=== PATIENT | male | born 1980 | race Caucasian/White ===

== ENCOUNTER 2023-02-24 08:37 | Outpatient (REF) | payer OTHER, SELFPAY ==
[2023-02-24 11:55] LABS: Alanine Aminotransferase 17 U/L (0-40); Albumin Level 4.3 g/dL (3.5-5.0); Alkaline Phosphatase 89 U/L (39-117); Anion Gap 14 (12-20); Aspartate Amino Transferase 12 U/L (5-37); Bilirubin Direct 0.3 mg/dL (0.0-0.5); Bilirubin Total 0.5 mg/dL (0.0-1.0); Blood Urea Nitrogen 16 mg/dL (9-16); Carbon Dioxide 25 mmol/L (22-29); Chloride 104 mmol/L (96-108); Cholesterol 142 mg/dL (<200); Estimated Glomerular Filt Rate > 60; Glucose Random 184 mg/dL (60-115); HDL Cholesterol 39 mg/dL (>40); LDL Cholesterol Calculated 69 mg/dL (<100); Potassium 4.6 mmol/L (3.3-5.1); Sodium 138 mmol/L (135-145); Total Protein 7.7 g/dL (6.5-8.0); Triglycerides 174 mg/dL (<150)
[2023-02-24 12:27] LABS: Reflex LDLD? No
[2023-02-27 18:47] LABS: CRP High Sensitivity 0.7 mg/L
== END 2023-02-24 08:38 | disposition home or self-care (01) ==
LOC: HO.HHCL 08:37
PROVIDERS: Visit Provider Internal Medicine
DX: I10 Essential (primary) hypertension (principal); E11.9 Type 2 diabetes mellitus without complications
CPT/HCPCS: 36415; 80048; 80061; 80076; 86141

== ENCOUNTER 2023-04-09 10:53 | Outpatient (AMB) | payer MEDICAID, SELFPAY ==
--- NOTE | 2023-04-09 11:05 | A.OFFVIS_ITS ---
Intake Intake Visit Reasons: Erictile Dysfuction Intake Note: NEW Patient presents today to established treatment for Erectile Dysfunction: Meds- None Allergies to Antibiotic- No Known Allergies Blood Thinner- Aspirin Insole And Outsole Preparer Required: Yes Insole And Outsole Preparer Language: Boring Machine Operator Double End Name: DIONI Vo/TIM Corea Information Interpreted: non-clinical & clinical Title Vehicle Service Attendant: Title Vehicle Service Attendant Present Accompanied by: Self / Same As Patient Allergies No Known Allergies Allergy (Verified 04/09/23 21:08) Medication List - Last Reconciled 04/09/23 by GENNA Oates- amlodipine 5 mg PO BEDTIME aspirin 81 mg PO QAM blood sugar diagnostic (FreeStyle Lite Strips) As directed carvedilol 25 mg PO dulaglutide (Trulicity) mg subcut QWEEK glipizide ER 10 mg PO isosorbide mononitrate ER 30 mg PO DAILY lancets (TRUEplus Lancets) As directed metformin ER 1,000 mg PO nitroglycerin mg sublingual rosuvastatin 40 mg PO BEDTIME tadalafil (Cialis) 5 mg PO DAILY 90 days ticagrelor (Brilinta) 90 mg PO BID HPI HPI Comments History of Present Illness Details Salazar is a very pleasant 42-year-old male patient of Dr. Garcia. He has a past medical history of hyperlipidemia, coronary artery disease, hypertension, and diabetes. He presents to the office today as a new patient for erectile dysfunction. In discussion with the patient today he reports noting symptoms of erectile dysfunction started approximately 3-5 years ago. When asked he does report being able to obtain erections however finds maintaining and at times obtaining erections to be difficult. Discussed at length potential causes for erectile dysfunction. Discussed and stressed the importance of managing diabetes for improvement in ED. When asked he denies any signs or symptoms of sleep apnea. When asked he denies any bothersome urinary issues. He denies urinary urgency, urinary frequency, incontinence, nocturia, hematuria, dysuria, foul smelling urine, changes to urinary stream, flank pain, fever, and or chills. He is happy with his current voiding parameters. In office urinalysis results reviewed with the patient today. Discussed further erectile dysfunction workup with labs. [facility] Medical History (Updated 04/09/23 @ 12:01 by [facility] Hx of chest pain Hx of hyperlipidemia Hx of coronary artery disease Hx of essential hypertension Hx of diabetes mellitus Surgical History (Updated 04/09/23 @ 11:16 by DIONI Vo) History of coronary artery stent placement Family History (Updated 04/09/23 @ 11:20 by DIONI Vo) Father No problems noted. Mother No problems noted. Social History (Updated 04/09/23 @ 11:26 by DIONI Vo) Alcohol intake: current Alcohol intake frequency: holidays/special occasions only Patient Tobacco Use Status: Former Tobacco user Review of Systems Const Reports no additional complaints Eyes Reports no additional complaints ENT Reports no additional complaints Card Reports as per HPI Resp Reports no additional complaints GI Reports no additional complaints Reports as per HPI Musc Reports no additional complaints Neuro Reports no additional complaints Psych Reports no additional complaints Endo Reports as per HPI Yosef/Lymph Reports no additional complaints Aller/Immun Reports no additional complaints Physical Exam Const General: cooperative, healthy appearing, comfortable, no acute distress, well developed, alert and awake Orientation/consciousness: patient oriented x3 Limitations: no limitations HEENT Head: Yes normal to inspection, Yes normocephalic and Yes atraumatic Ears: hearing grossly normal bilaterally Eyes General: appearance normal, both eyes and all related structures Neck Neck: Yes normal visual inspection and Yes trachea midline Chest Chest palpation & inspection: normal inspection of the chest Resp Effort & Inspection: normal respiratory effort and able to speak in complete sentences Cardio Rate: regular rate GI Inspection: Yes normal to inspection General: Yes no CVA tenderness Back/Spine/Pelvis Back: no CVA tenderness Skin General skin exam: no rashes or lesions noted Neuro General: patient oriented x3 Extrem General: Yes normal to inspection Psych Appearance: grossly normal and well kempt Mental Status: mental status grossly normal Speech and movement: Normal speech and movement present and Clear speech present Affect: normal affect Attitude: cooperative Thought process: Normal thought process present Thought content: Normal thought content present Insight: Fair insight present (Psych) Judgement: Fair judgement present (Psych) Results AMB Urinalysis, Automated UA Leukoctes 0 Alvaro/uL Last Edit by DIONI Vo on 04/09/23 11:23 UA Nitrite Negative Last Edit by Yeison Loza Yeimi on 04/09/23 11:23 UA Urobilinogen 0.2 mg/dL Last Edit by Yeison Loza Yeimi on 04/09/23 11:2 3 UA Protein 15 mg/dL Last Edit by Yeison Loza Yeimi on 04/09/23 11:23 UA pH 5.5 Last Edit by Yeison Loza Yeimi on 04/09/23 11:23 UA Blood 0 Sami/uL Last Edit by Yeison Loza [facility] on 04/09/23 11:23 UA Specific Mckenna 1.030 Last Edit by DIONI Vo on 04/09/23 11: 23 UA Ketone Negative Last Edit by Yeison Loza Yeimi on 04/09/23 11:23 UA Bilirubin 0 mg/dL Last Edit by Yeison Loza [facility] on 04/09/23 11:23 UA Glucose 1000 mg/dL Last Edit by Yeison Loza Yeimi on 04/09/23 11:23 3+ Yeison Loza 04/09/23 11:23 Results Reviewed Results Reviewed: Laboratory Last Values Urine pH (Auto) 5.5 04/09/23 11:21 Specific Mckenna (Auto) 1.030 04/09/23 11:21 Urine Protein (Auto) 15 mg/dL 04/09/23 11:21 Glucose (UA)(Auto) 1000 mg/dL 04/09/23 11:21 Urine Ketones (Auto) Negative 04/09/23 11:21 Urine Blood (Auto) 0 Sami/uL 04/09/23 11:21 Urine Nitrite (Auto) Negative 04/09/23 11:21 Urine Bilirubin (Auto) 0 mg/dL 04/09/23 11:21 Urine Urobilinogen (Auto) 0.2 mg/dL 04/09/23 11:21 Leukocyte Esterase (Auto) 0 Alvaro/uL 04/09/23 11:21 Assessment & Plan Assessment & Plan (1) Low libido: Code(s): R68.82 - Decreased libido (2) Erectile dysfunction associated with type 2 diabetes mellitus: Code(s): E11.69 - Type 2 diabetes mellitus with other specified complication; N52.1 - Erectile dysfunction due to diseases classified elsewhere Plan In office urinalysis results reviewed with the patient today; as noted above. Will obtain LH, prolactin, FSH, estradiol, hemoglobin A1c, SHBG, and testosterone free and total for further assessment evaluation. Discussed at length potential causes for erectile dysfunction patient is experiencing. Discussed at length importance of managing diabetes for improvement in ED as well as overall health and well-being. Start Cialis 5 mg daily as discussed and prescribed. Discussed further treatment options for erectile dysfunction at length. Discussed calling hand i tube bender to discuss on demand dosing for Viagra or Cialis. Discussed lifestyle modifications to assist with erectile dysfunction. Follow up in 2-3 months with labs to be completed prior; or sooner with any issues, concerns, or issues. Orders: Orders AMB Urinalysis Automated 04/09/23 Z13.9 - Encounter for screening, unspecified Kaden Alegre MD Lutenizing Hormone 04/09/23 E11.69 - Type 2 diabetes mellitus with other specified complication, N52.1 - Erectile dysfunction due to diseases classified elsewhere SHAHIDA OatesP-BC Prolactin 04/09/23 E1169 - Type 2 diabetes mellitus with other specified complication, N52.1 - Erectile dysfunction due to diseases classified elsewhere Adriana Paniagua, RN [facility] Follicle Stimulating Hormone 04/09/23 E11.69 - Type 2 diabetes mellitus with other specified complication, N52.1 - Erectile dysfunction due to diseases classified elsewhere Adriana Paniagua, RN [facility] Estradiol Ultra Sensitive 04/09/23 E11.69 - Type 2 diabetes mellitus with other specified complication, N52.1 - Erectile dysfunction due to diseases classified elsewhere Adriana Paniagua, RN [facility] Hemoglobin A1c 04/09/23 E11.69 - Type 2 diabetes mellitus with other specified complication, N52.1 - Erectile dysfunction due to diseases classified elsewhere Adriana Paniagua, RN [facility] Sex Hormone Binding Globulin 04/09/23 E11.69 - Type 2 diabetes mellitus with other specified complication, N52.1 - Erectile dysfunction due to diseases classified elsewhere Adriana Paniagua, RN [facility] Testosterone, Free/Total 04/09/23 E11.69 - Type 2 diabetes mellitus with other specified complication, N52.1 - Erectile dysfunction due to diseases classified elsewhere CARROL Oates Medications: New tadalafil (Cialis) [id number] [facility] [id number] Member [id number] 5 mg PO DAILY 90 tabs 0RF 90 days E11.69 - Type 2 diabetes mellitus with other specified complication, N52.1 - Erectile dysfunction due to diseases classified elsewhere CARROL Oates Coding Level of Care Code New Pt Level 4 (34117) Diagnoses Low libido R68.82 Erectile dysfunction associated with type 2 diabetes mellitus E11.69; N52.1
== END 2023-04-09 12:04 | disposition home or self-care (01) ==
PROVIDERS: PCP Internal Medicine; Visit Provider Urology
DX: R68.82 Decreased libido (principal); E11.69 Type 2 diabetes mellitus with other specified complication; N52.1 Erectile dysfunction due to diseases classified elsewhere
CPT/HCPCS: 99204

== ENCOUNTER → 2023-04-09 10:53 | Outpatient (BNVA) | payer OTHER, SELFPAY | PROVIDERS: PCP Internal Medicine; Visit Provider Urology | DX: R68.82 Decreased libido (principal); E11.69 Type 2 diabetes mellitus with other specified complication; N52.1 Erectile dysfunction due to diseases classified elsewhere | CPT/HCPCS: 81003; 99202 ==

== ENCOUNTER 2023-06-05 13:45 | Outpatient (REF) | payer MEDICAID, SELFPAY ==
--- NOTE | ~2023-06-05 | XR_ITS ---
EXAMINATION: XR FOOT, LEFT CLINICAL INFORMATION: Plantar ulcer in the foot COMPARISON: None available. TECHNIQUE: AP, lateral, and oblique views of the left foot. FINDINGS: No convincing evidence for a bony erosion. No fracture or dislocation. Some early degeneration at the first MTP joint. No soft tissue air is seen. XR/XR foot LT min 3V IMPRESSION: No bony finding. Correlation recommended clinically
== END 2023-06-05 13:46 | disposition home or self-care (01) ==
LOC: HO.HHCX 13:45
PROVIDERS: Visit Provider Internal Medicine
DX: L97.521 Non-pressure chronic ulcer of other part of left foot limited to breakdown of skin (principal)
CPT/HCPCS: 73630

== ENCOUNTER 2024-04-06 10:01 | Outpatient (REF) | payer MEDICAID, SELFPAY ==
--- NOTE | ~2024-04-06 | XR_ITS ---
EXAMINATION: XR CHEST CLINICAL INFORMATION: cough COMPARISON: None available. TECHNIQUE: 2 views of the chest were obtained. FINDINGS: The cardiac, hilar, and mediastinal contours are normal. There is a left coronary stent. Prior median sternotomy. The lungs are clear bilaterally. There is no pneumothorax or pleural effusion. There is no focal osseous or soft tissue abnormality. Median sternotomy with sternal wires intact and non-migrated. XR/XR chest 2V IMPRESSION: No active pulmonary disease. Electronically signed by: Prem Varela MD 04/06/2024 11:02 AM EST
--- OUTSIDE RECORDS SUMMARY | 2024-04-06 10:57 | XMS_ITS | Clinical Summary ---
Author Organization [facility] Address [address] [place] [address] Care Team Providers Care Cream Maker Name Role Phone Unavailable Primary Care Provider Unavailabl e Source Comments PLEASE NOTE, if this patient is a minor, it may be UNLAWFUL to discuss sensitive information that is contained in these records (such as FAMILY PLANNING, MENTAL HEALTH or SUBSTANCE ABUSE) with the minor patient's parent or other person without the patient's specific authorization.[facility] Immunizations Name Administration Dates Next Due PFIZER COVID VACCINE, PURPLE CAP, 1208/09/2020 ,07/19/2020 Social History Tobacco Use Types Packs/Day Years Used Date Smoking Tobacco: Never Assessed Social Connections Answer Date Recorded Social Connections and Isolation 0 06/25/2020 Financial Resource Strain Answer Date R ecorded Financial Resource Strain 0 2020 Stress Answer Date Recorded Stress 0 06/25/2020 Physical Activity Answer Date Recorded Physical Activity 0 06/25/2020 Food Insecurity Answer Date Recorded Food 0 06/25/2020 Transportation Needs Answer Date Record ed Transportation 0 06/25/2020 Housing Stability Answer Date Recorded Housing 0 06/25/2020 Safety and Environment Answer Date Tristan rded Safety 0 06/25/2020 Utilities Answer Date Recorded Utilities 0 06/25/2020 Employment Answer Date Recorded Employment 0 06/25/2020 Sex and Gender Information Value Date Recorded Sex Assigned at Not on file Legal Sex Male 1:33 PM PDT Gender Identity Not on file Sexual Orientation Not on file Plan of Treatment Health Maintenance Due Date Last Done Comments Diabetes Screening 1979 Hepatitis C Screening 1979 Lipid Screening 1979 Tobacco Screening 1979 HIV Screening 05/25/1994 Hypertension Screening (#1) 05/25/1997 Imm-Hepatitis B (1 of 3 - 19 + 3-dose series) 05/25/1998 [id number] ( season) 2023 021, 07/19/2020 Imm-Influenza (#1) 2023 02/23/2019 Alcohol and Drug Screen 03/16/2024 Depression Annual Screen 03/16/2024 Imm-DTaP/Tdap/Td (2 - Td or Tdap) 10/10/[address]28 [address] [employer]
--- OUTSIDE RECORDS SUMMARY | 2024-04-06 10:57 | XMS_ITS | Encounter Summary ---
Author Organization [employer] Address [address] [place] [address] [place] [address] Care Team Providers Care Site Safety Representative Name Role Phone Prasad Menezes MD Primary Care Provide r Reason for Referral * Consultation (Urgent) - Authorized Specialty Diagnoses / Procedures Referred By Contac t Referred To Contact Ophthalmology Diagnoses Type 2 diabetes mellitus without complication, without long-term current use of insulin ([facility]) Prasad Menezes MD [address] [place] [phone] Phone: tel: fax: [facility] [place] [address] [place] [address] Phone: tel:[phone] fax: Referral ID Status Reason Start Date Expiration Date Visits Requested Visits Authorized [id number] Authorized Specialty Services Required 03/17/2024 03/17/2025 1 1 Reason for Visit * Reason Comments Annual Exam Diabetes Encounter Details Date Type Department Care Team (Late st Contact Info) Description 03/17/2024 10:30 AM EST Office Visit [facility] [address] [place] [address] [phone] Prasad Menezes MD [address] [place] [phone] S/P CABG (coronary artery bypass graft) (Primary Dx); Type 2 diabetes mellitus without complication, without long-term current use of insulin (CMS/HCC); Ischemic heart disease; Acute cough; Essential hypertension; Mixed hyperlipidemia; Erectile dysfunction, unspecified erectile dysfunction type; Class 2 obesity; Dietary counseling; Exercise counseling Social History Tobacco Use Types Packs/Day Years Used Date Smoking Tobacco: Former Cigarettes 0.3 32.1 S tarted: 1992 Passive Smoke Exposure: Past Smokeless Tobacco: Never Comments:Smoking about 7 cig s daily; has tried to quit previously about 3 times. Alcohol Use Standard Drinks/Week Comments Yes 0 (1 standard drink = 0.6 oz pur e alcohol) socially Depression Answer Date Recorded Patient Health Questionnaire-9 Score 0 03/17/2024 Patient Health Questionnaire-9 Score 0 03/17/2024 Last PHQ-9: Questionnaire Data Not on file 0 03/17/2024 Housing Stability Answer Date Recorded What is your housing situation today? I have estela simon 01/22/[address] you li ve. Do you have problems with any of the following? None of the above 01/22/2023 Food Insecurity Answer Date Recorded Within the past 12 months, y ou worried that your food would run out before you got money to buy more: Never True 01/22/2023 Within the past 12 months,th e food you bought just didn't last and you didn't have enough money to get more: Never True 11/2022 Transportation Answer Date Recorded In the past 12 months, has l ack of transportation kept you from medical appts, meetings, work or from getting things needed for daily living? No 01/22/2023 Utilities Answer Date Recorded In the past 12 months, has t he [employer], gas, oil or water [employer] threatened to shut off services in your home? No 01/22/2023 Depression Answer Date Recorded Patient Health Questionnaire-2 Score 0 03/17/2024 Internet Access Answer Date Recorded Internet Access Q1 Yes 01/18/2024 Internet Access Q2 Not on file 01/18/2024 Sex and Gender Information Value Date Recorded Sex Assigned at Male 01/13/2022 10:35 AM EDT Legal Sex Male 10:35 AM EDT Gender Identity Male 01/13/2022 10:35 AM EDT Sexual Orientation Choose not to disclose 2021 10:35 AM EDT documented as of this encounter Last Filed Vital Signs Vital Sign Reading Time Taken Comments Blood Pressure 118/92 03/17/2024 10:23 AM EST Pulse 105 03/17/2024 10:23 AM EST Temperature 36.8 ??C (98.2 ??F) 03/17/2024 10:[address] Respiratory Rate 20 03/17/2024 10:23 AM EST Oxygen Saturation 99% 03/17/2024 10:23 AM EST Inhaled Oxygen Concentration - - Weight 93.9 kg (207 lb) 03/17/2024 10:23 AM EST Height 167.6 cm (5' 6 ) 03/17/2024 10:23 AM EST Body Mass Index 33.41 03/17/2024 10:23 AM EST documented in this encounter Progress Notes * Prasad Thompson MD - 03/17/2024 10:30 AM EST SUBJECTIVE Salazar Swan is a 43 y.o. male who presents for Annual Exam and Diabetes. Patient here for a follow up after a long hiatus Diabetes He presents for his follow-up diabetic visit. He has type 2 diabetes mellitus. Pertinent negatives for hypoglycemia include no dizziness or headaches. Pertinent negatives for diabetes include no chest pain and no fatigue. Cough This is a new problem. The current episode started 1 to 4 weeks ago. The problem has been waxing and waning. The cough is Non-productive. Pertinent negatives include no chest pain, chills, ear congestion, ear pain, fever, headaches, hemoptysis, nasal congestion, rash, sore throat, shortness of breath or wheezing. Nothing aggravates the symptoms. He has tried nothing for the symptoms. Review of Systems Constitutional: Negative for appetite change, chills, fatigue and fever. HENT: Negative for ear pain, hearing loss and sore throat. Eyes: Negative for pain and visual disturbance. Respiratory: Positive for cough. Negative for hemoptysis, shortness of breath and wheezing. Cardiovascular: Negative for chest pain and palpitations. Gastrointestinal: Negative for abdominal pain, nausea and vomiting. Genitourinary: Negative for dysuria. Skin: Negative for rash. Neurological: Negative for dizziness and headaches. Psychiatric/Behavioral: Negative for sleep disturbance. Not on File OBJECTIVE Vitals: 03/17/24 1023 BP: (!) 118/92 BP Location: Left arm Patient Position: Sitting BP Cuff Size: Adult Pulse: 105 Resp: 20 Temp: 98.2 ??F (36.8 ??C) TempSrc: Temporal SpO2: 99% Weight: 207 lb (93.9 kg) Height: 5' 6 (1.676 m) Physical Exam Vitals reviewed. Constitutional: General: He is not in acute distress. Appearance: Normal appearance. HENT: Head: Normocephalic and atraumatic. Right Ear: Tympanic membrane, ear canal and external ear normal. Left Ear: Tympanic membrane, ear canal and external ear normal. Nose: Nose normal. Mouth/Throat: Mouth: Mucous membranes are moist. Pharynx: Oropharynx is clear. Eyes: Extraocular Movements: Extraocular movements intact. Conjunctiva/sclera: Conjunctivae normal. Pupils: Pupils are equal, round, and reactive to light. Cardiovascular: Rate and Rhythm: Normal rate and regular rhythm. Pulses: Normal pulses. Heart sounds: Normal heart sounds. Pulmonary: Effort: Pulmonary effort is normal. Breath sounds: Normal breath sounds. Abdominal: General: Bowel sounds are normal. Palpations: Abdomen is soft. Musculoskeletal: General: Normal range of motion. Cervical back: Normal range of motion and neck supple. Skin: General: Skin is warm. Capillary Refill: Capillary refill takes less than 2 seconds. Neurological: General: No focal deficit present. Mental Status: He is alert and oriented to person, place, and time. Mental status is at baseline. Psychiatric: Mood and Affect: Mood normal. Assessment/Plan Problem List Items Addressed This Visit Type 2 diabetes mellitus without complication, without long-term current use of insulin ([facility]) Here for a f/u Patient admits he does not follow a diabetic diet. He says he is taking his medications regularly he has a med box Hgb A1c 03/17/2024 was 7.4 from 8.7 From 12.1 He is on a regimen of Metformin XR 500 mg 2 tabs po BID, Glipizide XR 10 mg po daily and Trulicity 0.75 once a week ( Pt never increased the dose to 1.5 mg due to shortage, also did not increase to 3) Referred to our DM and Nutrition Program and Eye exam previously Microalbumin was 8.9 , Pt is on an LULU inhibitor . Will repeat Pt denies any Hx of Pancreatitis denies any Family hx of thyroid papillary carcinoma Plan:continue Metformin and Glipizide, keep Trulicity 0.75 mg once a week. 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 He underwent cardiac catheterization that revealed iFR positive 70% LAD lesion, 70% OM2,99% RCA in stent stenosis, 60% PDA. On 01/18/2024 underwent CABGx4 (VELAZQUEZ to LAD, SVG to PDA, seqSVG to PLV-OM2) surgeon attempted endoscopic harvesting of the left radial artery (aborted due to allens failure after cutdown) by Dr. Jordan Started Cardiac rehab. He is seeing Cardiology 03/28, Cardiac surgeon recommended ASA, BB and statin for CAD and graft patency. DAPT with Plavix and ASA for 1 year for NSTEMI. 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 He underwent cardiac catheterization that revealed iFR positive 70% LAD lesion, 70% OM2,99% RCA in stent stenosis, 60% PDA. On 01/18/2024 underwent CABGx4 (VELAZQUEZ to LAD, SVG to PDA, seqSVG to PLV-OM2) surgeon attempted endoscopic harvesting of the left radial artery (aborted due to allens failure after cutdown) by Dr. Jordan Started Cardiac rehab. He is seeing Cardiology 03/28, Cardiac surgeon recommended ASA, BB and statin for CAD and graft patency. DAPT with Plavix and ASA for 1 year for NSTEMI. Pt is scheduled to follow up with [facility] Cardiology Acute cough Mild dry, no fever, no sob, no chest pain Plan: Chest x-ray Relevant Orders XR Chest 2 Views Essential hypertension Pt here for a f/u for HTN. BP controlled On Carvedilol 25 mg bid and Amlodipine 10 mg po daily, No longer on Losartan 50 mg po daily ( started by Dr Ortega discontinued by Cardiology ) OFF Lisinopril ( stopped due to concerns of cough) question of secondary HTN ? Pt evaluated by Dr. Howard Nephrology 06/24/2019 who recommended to hold off on work up for 2 year caused of HTN will consider Sleep Study if indicated. BMP Lab Results Component Value Date NA 138 02/24/2023 K 4.6 02/24/2023 CL 104 02/24/2023 BUN 16 02/24/2023 BUN 9 12/12/2021 CREATININE 1.02 02/24/2023 Normal, never had the repeat labs I ordered, asked again today He tells me he just took his meds a few minutes ago Plan: f/u in 1 month Pt encouraged to continue to follow with Dr. Howard Relevant Orders Comprehensive Metabolic Panel Mixed hyperlipidemia Pt here for a f/u Most recent lipid profile from: Lab Results Component Value Date TRIG 174 (H) 02/24/2023 CHOL 142 02/24/2023 LDLCHOLCAL 69 02/24/2023 HDL 39 (L) 02/24/2023 Currently on a regimen of Rosuvastatin 40 mg po qhs He admits he forgets to take it sometimes, Pharmacy states he has been picking up boxes regularly plan: LDL <70 on target advised to try to adhere to a low cholesterol diet, counseled and educated about diet and exercise,Patient encouraged to come up with a personal goal for weight loss. Advice to start taking medication daily to prevent deadly problems such as MIs or CVAs pt verbalized understanding f/u 3 months Relevant Orders Lipid Panel, Standard Class 2 obesity Patient has been counseled and educated about diet and exercise. Personal goal of weight loss discussedPatient has comorbidity of: DM Other Visit Diagnoses Erectile dysfunction, unspecified erectile dysfunction type Relevant Orders Testosterone, Free (Dialysis) And Total, MS Dietary counseling Exercise counseling documented in this encounter Miscellaneous Notes * Assessment & Plan Note - Prasad Thompson MD - 03/17/2024 11:20 AM EST Associated Problem(s): Class 2 obesity Patient has been counseled and educated about diet and exercise. Personal goal of weight loss discussedPatient has comorbidity of: DM * Assessment & Plan Note - Prasad Thompson MD - 03/17/2024 11:11 AM EST Associated Problem(s): Mixed hyperlipidemia Pt here for a f/u Most recent lipid profile from: Lab Results Component Value Date TRIG 174 (H) 02/24/2023 CHOL 142 02/24/2023 LDLCHOLCAL 69 02/24/2023 HDL 39 (L) 02/24/2023 Currently on a regimen of Rosuvastatin 40 mg po qhs He admits he forgets to take it sometimes, Pharmacy states he has been picking up boxes regularly plan: LDL <70 on target advised to try to adhere to a low cholesterol diet, counseled and educated about diet and exercise,Patient encouraged to come up with a personal goal for weight loss. Advice to start taking medication daily to prevent deadly problems such as MIs or CVAs pt verbalized understanding f/u 3 months * Assessment & Plan Note - Prasad Thompson MD - 03/17/2024 11:09 AM EST Associated Problem(s): Essential hypertension Pt here for a f/u for HTN. BP controlled On Carvedilol 25 mg bid and Amlodipine 10 mg po daily, No longer on Losartan 50 mg po daily ( started by Dr Ortega discontinued by Cardiology ) OFF Lisinopril ( stopped due to concerns of cough) question of secondary HTN ? Pt evaluated by Dr. Howard Nephrology 06/24/2019 who recommended to hold off on work up for 2 year caused of HTN will consider Sleep Study if indicated. BMP Lab Results Component Value Date NA 138 02/24/2023 K 4.6 02/24/2023 CL 104 02/24/2023 BUN 16 02/24/2023 BUN 9 12/12/2021 CREATININE 1.02 02/24/2023 Normal, never had the repeat labs I ordered, asked again today He tells me he just took his meds a few minutes ago Plan: f/u in 1 month Pt encouraged to continue to follow with Dr. Howard * Assessment & Plan Note - Prasad Thompson MD - 03/17/2024 11:06 AM EST Associated Problem(s): Acute cough Mild dry, no fever, no sob, no chest pain Plan: Chest x-ray * Assessment & Plan Note - Prasad Thompson MD - 03/17/2024 10:38 AM EST Associated Problem(s): Type 2 diabetes mellitus without complication, without long-term current useof insulin ([facility]) Here for a f/u Patient admits he does not follow a diabetic diet. He says he is taking his medications regularly he has a med box Hgb A1c 03/17/2024 was 7.4 from 8.7 From 12.1 He is on a regimen of Metformin XR 500 mg 2 tabs po BID, Glipizide XR 10 mg po daily and Trulicity 0.75 once a week ( Pt never increased the dose to 1.5 mg due to shortage, also did not increase to 3) Referred to our DM and Nutrition Program and Eye exam previously Microalbumin was 8.9 , Pt is on an LULU inhibitor . Will repeat Pt denies any Hx of Pancreatitis denies any Family hx of thyroid papillary carcinoma Plan:continue Metformin and Glipizide, keep Trulicity 0.75 mg once a week. 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 He underwent cardiac catheterization that revealed iFR positive 70% LAD lesion, 70% OM2,99% RCA in stent stenosis, 60% PDA. On 01/18/2024 underwent CABGx4 (VELAZQUEZ to LAD, SVG to PDA, seqSVG to PLV-OM2) surgeon attempted endoscopic harvesting of the left radial artery (aborted due to allens failure after cutdown) by Dr. Jordan Started Cardiac rehab. He is seeing Cardiology 03/28, Cardiac surgeon recommended ASA, BB and statin for CAD and graft patency. DAPT with Plavix and ASA for 1 year for NSTEMI. 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 He underwent cardiac catheterization that revealed iFR positive 70% LAD lesion, 70% OM2,99% RCA in stent stenosis, 60% PDA. On 01/18/2024 underwent CABGx4 (VELAZQUEZ to LAD, SVG to PDA, seqSVG to PLV-OM2) surgeon attempted endoscopic harvesting of the left radial artery (aborted due to allens failure after cutdown) by Dr. Jordan Started Cardiac rehab. He is seeing Cardiology 03/28, Cardiac surgeon recommended ASA, BB and statin for CAD and graft patency. DAPT with Plavix and ASA for 1 year for NSTEMI. documented in this encounter Plan of Treatment Upcoming Encounters Date Type Department Care Team (Late st Contact Info) Description 05/03/2024 2:15 PM EST Office Visit [facility] [address], [place] [phone] Prasad Menezes MD [address] [place] [address] 03/20/2025 2:30 PM EST Medication Management [facility] [address] [place], [place] [phone] Renetta Su, PharmD [address] [place] [address] Scheduled Orders Name Type Priority Associated Diagnoses Orde r Schedule Albumin, Random Urine W/Creatinine Lab Routine Type 2 diabetes mellitus without complication, without long-term current use of insulin ([facility]) Ordered: 03/17/2024 XR Chest 2 Views Imaging Routine Acute cough Ordered: 03/17/2024 Lipid Panel, Standard Lab Routine Mixed hyperlipidemia Ordered: 03/17/2024 Testosterone, Free (Dialysis) And Total, MS Lab Routine Erectile dysfunction, unspecified erectile dysfunction type Expected: 03/17/2024 (Approximate), Expires: 03/17/2025 Comprehensive Metabolic Panel Lab Routine Essential hypertension Ordered: 03/17/2024 Scheduled Referrals Name Type Priority Associated Diagnoses Order Schedule Referral to Ophthalmology Outpatient Referral Urgent Type 2 diabetes mellitus without complication, without long-term current use of insulin (CMS/HCC) Expected: 03/17/2024 (Approximate), Expires: 03/17/2025 documented as of this encounter Goals Goal Patient Goal Type Associated Problems Recent Progress Patient-Stated? Author Blood Pressure < 140/90 Blood Pressure 118/92(2024 10:23 AM EST) No Mary Kate Paul PharmD Note: Check BP at home daily and record Eat less salt Diet No Mary Kate Paul PharmD Note: Decrease sodium/ salt consumption documented as of this encounter Procedures Procedure Name Priority Date/Time Associated Diagnosis Comments POCT GLYCATED HEMOGLOBIN, TOTAL Routine 03/17/2024 10:36 AM EST Type 2 diabetes mellitus without complication, without long-term current use of insulin ([facility]) POCT GLUCOSE Routine 03/17/2024 10:34 AM EST Type 2 diabetes mellitus without complication, without long-term current use of insulin ([facility]) documented in this encounter Results * (ABNORMAL) POCT HGB A1C (03/17/2024 10:36 AM EST) Hemoglobin A1C 7.4(A) 4.0 - 6.0 % QC Media Lot # [id number] Lot# Expiration Date Blood 03/17/2024 10:3 6 AM EST Prasad Thompson MD POINT OF CARE TEST EN TER/EDIT ORDERABLES Final Result * (ABNORMAL) POCT Glucose (03/17/2024 10:34 AM EST) Glucose Blood, POC 411(A) 60 - 200 mg/dL QC Media Lot # [id number] Lot# Expiration Date , Blood Capillary blood specimen / Unknown 03/17/2024 10:34 AM EST us Prasad Thompson MD POINT OF CARE TEST EN TER/EDIT ORDERABLES Final Result documented in this encounter Visit Diagnoses Diagnosis S/P CABG (coronary artery bypass graft)- Primary Postsurgical aortocoronary bypass status Type 2 diabetes mellitus without complication, without long-term current use of insulin ([facility]) Ischemic heart disease Other specified forms of chronic ischemic heart disease Acute cough Essential hypertension Unspecified essential hypertension Mixed hyperlipidemia Erectile dysfunction, unspecified erectile dysfunction type Class 2 obesity Dietary counseling Dietary surveillance and counseling Exercise counseling documented in this encounter Additional Health Concerns Assessment Noted Time PHQ-9 Depression Total Score: 0 03/17/19 25 10:27 AM EST documented as of this encounter Care Teams Site Safety Representative Relationship Specialty Start Date End Date Prasad Menezes MD [address] [place] [address] PCP - General Internal Medicine 10/12/18 documented as of this encounter
--- OUTSIDE RECORDS SUMMARY | 2024-04-06 10:57 | XMS_ITS | Clinical Summary ---
Author Organization [employer] Address [address] [place] [address] [address] [place] [address] Care Team Providers Care Utilization Management Um Nurse Name Role Phone Prasad Menezes MD Primary Care Provide r Allergies Active Allergy Reactions Criticality Noted Date Comments Other 03/17/2024 Anchovies Medications Blood Pressure Monitoring (Omron 3 Series BP Monitor) deviceIndications :Essential hypertension USE TO CHECK BLOOD PRESSURE EVERY DAY DIRECTED 1 each 02/04/20 23 Active carvedilol (Coreg) 25 MG tabletIndications :Ischemic heart disease TAKE 1 TABLET BY MOUTH TWICE DAILY IN THE MORNING AND AT BEDTIME 180 tablet 1 08/06/19 24 Active Aspirin Low Dose 81 MG EC tabletIndications :Essential hypertension TAKE 1 TABLET BY MOUTH EVERY MORNING 90 tablet 1 10/29/19 24 Active rosuvastatin (Crestor) 40 MG tabletIndications :Mixed hyperlipidemia TAKE 1 TABLET BY MOUTH AT BEDTIME 90 tablet 1 10/29/19 24 Active amLODIPine (Norvasc) 10 MG tabletIndications :Essential hypertension Take 1 tablet (10 mg) by mouth at bedtime. 90 tablet 3 12/14/19 24 Active Blood Glucose Monitoring Suppl (FreeStyle Phoenix Lite) w/Device kitIndications:Ty pe 2 diabetes mellitus without complication, without long-term current use of insulin (CMS/HCC) TEST BLOOD SUGAR TWICE DAILY 1 kit 01/04/20 24 Active glucose blood (FREESTYLE LITE) test stripIndications: Type 2 diabetes mellitus without complication, without long-term current use of insulin (CMS/HCC) TEST BLOOD SUGAR TWICE A DAY and as needed 100 each 11 01/04/20 24 Active TRUEplus Lancets 33G miscIndications:T ype 2 diabetes mellitus without complication, without long-term current use of insulin (CMS/HCC) TEST BLOOD SUGAR TWICE DAILY & NEEDED 100 each 01/04/20 24 Active Alcohol Swabs (Alcohol Pads) 70 % padsIndications:T ype 2 diabetes mellitus without complication, without long-term current use of insulin (CMS/HCC) Use as directed up to 3 times a day for checking blood sugar and trulicity injection 100 each 01/04/20 24 Active metFORMIN XR (Glucophage-XR) 500 MG 24 hr tabletIndications :Type 2 diabetes mellitus without complication, unspecified whether oil heaterman insulin use (CMS/HCC) Take 2 tablets (1,000 mg) by mouth with breakfast and with evening meal. Do not crush, chew, or split. 360 tablet 1 01/21/20 Active EpiPen 2-Ernesto 0.3 MG/0.3ML injection syringe Inject intramuscularly for allergic reactions. Call 911 Seek Medical attention 02/03/20 24 Active clopidogrel (Plavix) 75 MG tablet Take 1 tablet (75 mg) by mouth Once per day. 30 tablet 11 02/24/20 24 2024 Active glipiZIDE XL (Glucotrol XL) 10 MG 24 hr tabletIndications :Type 2 diabetes mellitus with unspecified complications (CMS/HCC) TAKE 1 TABLET BY MOUTH once a day in the morning 30 tablet 1 02/24/20 24 Active isosorbide mononitrate ER (Imdur) 60 MG 24 hr tablet Take 1 tablet (60 mg) by mouth in the morning. 90 tablet 03/08/20 24 Active Dulaglutide (Trulicity) 0.75 MG/0.5ML solution auto-injectorIndi cations:Type 2 diabetes mellitus without complication, without long-term current use of insulin (CMS/HCC) Inject 0.5 mL (0.75 mg) under the skin 1 (one) time per week. 0.5 mL 1 03/17/19 25 Active Dulaglutide (Trulicity) 3 MG/0.5ML solution auto-injectorIndi cations:Type 2 diabetes mellitus with unspecified complications (CMS/HCC) Inject 0.5 mL (3 mg) under the skin 1 (one) time per week. 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 He underwent cardiac catheterization that revealed iFR positive 70% LAD lesion, 70% OM2, 99% RCA in stent stenosis, 60% PDA. On [...] and ASA for 1 year for NSTEMI. Acute cough 03/17/2024 Assessment & Plan (03/17/2024 11:06 AM EST): Mild dry, no fever, no sob, no chest pain Plan: Chest x-ray ACS (acute coronary syndrome) 06/17/2023 Class 2 obesity 06/17/2023 Assessment & Plan (03/17/2024 11:20 AM EST): Patient has been counseled and educated about diet and exercise. Personal goal of weight loss discussedPatient has comorbidity of: DM Periodontal disease 06/17/2023 Dental calculus 06/17/2023 Incurved toenail 06/05/2023 Assessment & Plan (06/05/2023 1:45 PM EDT): Refer to podiatry Plantar ulcer of left foot, limited to breakdown of skin 06/05/2023 Assessment & Plan (06/05/2023 1:47 PM EDT): Wound dressing of lesion on left foot plantar area, done today. 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 He underwent cardiac catheterization that revealed iFR positive 70% LAD lesion, 70% OM2, 99% RCA in stent stenosis, 60% PDA. On 01/18/2024 underwent CABGx4 (VELZAQUEZ to LAD, SVG to PDA, seqSVG to [...] Pt is scheduled to follow up with [facility] Cardiology Assessment & Plan (03/05/2023 1:25 PM EST): Doing well, denies any chest pain s/p drug-eluting stent to RCA on 02/24/2019 s/p cardiac cath on 01/20/2023 with PCI: JEANNIE x 2 in LAD and JEANNIE x 1 in RCA Patient started on dual antiplatelet with Brilinta. Carvedilol was increased to 25 mg twice daily and amlodipine was restarted following uncontrolled HTN. LDL 146 mg/dL inpatient for which cardiology recommended PCSK9 inhibitor outpatient if LDL remains uncontrolled. Patient stabilized and was discharged home with self-care. Pt is scheduled to follow up with [facility] Cardiology Assessment & Plan (02/03/2023 2:32 PM EST): Doing well, denies any chest pain s/p drug-eluting stent to RCA on 02/24/2019 s/p cardiac cath on 01/20/2023 with PCI: JEANNIE x 2 in LAD and JEANNIE x 1 in RCA Patient started on dual antiplatelet with Brilinta added. Carvedilol was increased to 25 mg twice daily and amlodipine was restarted following uncontrolled HTN. LDL 146 mg/dL inpatient for which cardiology recommended PCSK9 inhibitor outpatient if LDL remains uncontrolled. Patient stabilized and was discharged home with self-care. Pt is scheduled to follow up with [facility] Cardiology Other male erectile dysfunction 02/03/2023 Assessment & Plan (02/03/2023 10:13 AM EST): Pt would like to be referred to Urology, On Imdur Tobacco dependence 08/22/2022 Assessment & Plan (02/03/2023 2:38 PM EST): Pt tells me he has not smoke since discharge We discussed nicotine patches, gum, lozenges, chantix Declined all of them Essential hypertension 02/21/2022 Overview (08/22/2022): Started CDTM 04/2022. Lisinopril used in past but stopped due to cough. Losartan was started but then discontinued by cardiology 11/2021 as patient reported he only took 1 dose and BP was controlled at time of visit. Question of secondary HTN, evaluated by nephrology in 2019 with recommendation to hold off on work-up for 2 years; due for re-check 2022. Current therapy: - Amlodipine 7.5mg daily - Carvedilol 12.5mg BID Assessment & Plan (03/17/2024 11:09 AM EST): Pt here for a f/u for HTN. [...] to continue to follow with Dr. Howard Assessment & Plan (06/05/2023 1:50 PM EDT): Uncontrolled today, apparently better controlled (probably not at goal) at home Continue checking BP at home three times per week and refer to [facility], he's not seeing Dr Howard. Continue amlodipine 7.5mg + Carvedilol 25mg bid + Isosorbide 30mg and fu BP with RN in 2-3w Counseled re low salt diet/increase moderate physical activity. I told him to rs appt for cardiac rehab, he'll wait until next month when he's out of 3 mo trial period on his new job. I told him that FMLA can be done if needed so that he can attend these appts. FU with PCP in Assessment & Plan (03/05/2023 1:30 PM EST): Pt here for a f/u for HTN. BP controlled On Carvedilol 25 mg bid and Amlodipine 7.5 mg po daily, No longer on Losartan 50 mg po daily ( started by Dr Ortega discontinued by Cardiology ) OFF Lisinopril ( stopped due to concerns of cough) question of secondary HTN ? Pt evaluated by Dr. Howard Nephrology 06/24/2019 who recommended to hold off on work up for 2 year caused of HTN will consider Sleep Study if indicated. BMP 12/12/2021 Normal, never had the repeat labs I ordered, asked again today He tells me he just took his meds a few minutes ago Plan: f/u in 2 months Pt encouraged to continue to follow with Dr. Howard Assessment & Plan (02/03/2023 2:37 PM EST): Pt here for a f/u for HTN. Currently on Carvedilol 25 mg bid and Amlodipine 7.5 mg po daily, No longer on Losartan 50 mg po daily ( started by Dr Ortega discontinued by Cardiology ) OFF Lisinopril ( stopped due to concerns of cough) question of secondary HTN ? Pt evaluated by Dr. Howard Nephrology 06/24/2019 who recommended to hold off on work up for 2 year caused of HTN will consider Sleep Study if indicated. BMP 12/12/2021 Normal, never had the repeat labs I ordered, asked again today He tells me he just took his meds a few minutes ago Plan: f/u in 1 month Pt encouraged to continue to follow with Dr. Howard Mixed hyperlipidemia 02/21/2022 Assessment & Plan (03/17/2024 11:11 AM EST): Pt here for a f/u Most recent [...] diet, counseled and educated about diet and exercise, Patient encouraged to come up with a personal goal for weight loss. Advice to start taking medication daily to prevent deadly problems such as MIs or CVAs pt verbalized understanding f/u 3 months Assessment & Plan (03/05/2023 1:26 PM EST): Pt here for a f/u Most recent lipid profile from: 02/2023 shows Component Ref Range & Units 9 d ago (02/24/23) 1 yr ago (12/12/21) 1 yr ago (03/11/21) 2 yr ago (06/11/20) Triglycerides <150 mg/dL 174??High?? 247??High?? CM 378??High?? CM 430??High?? CM Comment: Desirable Triglyceride: ? less than 150 mg/dLBorderline High Triglyceride ??150-199 mg/dLHigh Triglyceride: ?200-499 mg/dLVery High Triglyceride: ? greater than or equal to ?5OO mg/dL Cholesterol <200 mg/dL 142 Comment: Desirable Cholesterol: ?less than 200 mg/dLBorderline High Cholesterol: ??200-239 mg/dLHigh Cholesterol: ? greater than 239 mg/dL LDL Cholesterol Calculated <100 mg/dL 69 Comment: Desirable LDL: ? less than 100 mg/dLNear Optimal/Above Optimal LDL: ??110-129 mg/dLBorderline High LDL: ? 130-159 mg/dLHigh LDL: ?160-189 mg/dLVery High LDL: ? greater than or equal to ? 190 mg/dL HDL Cholesterol >40 mg/dL 39??Low?? 39??Low?? R 38??Low?? R 37??Low?? R Currently on a regimen of Rosuvastatin 40 mg po qhs He admits he forgets to take it sometimes, Pharmacy states he has been picking up boxes regularly plan: LDL <70 on target advised to try to adhere to a low cholesterol diet, counseled and educated about diet and exercise, Patient encouraged to come up with a personal goal for weight loss. Advice to start taking medication daily to prevent deadly problems such as MIs or CVAs pt verbalized understanding f/u 3 months Assessment & Plan (02/03/2023 9:56 AM EST): Pt here for a f/u Most recent lipid profile from: 03/11/2021 shows a total cholesterol of: 248 triglycerides of: 378 HDL of: 38 and LDL of: 152 Currently on a regimen of Rosuvastatin 40 mg po qhs He admits he forgets to take it sometimes, Pharmacy states he has been picking up boxes regularly plan: Repeat Lipid profile might consider adding Praluent if still elevated advised to try to adhere to a low cholesterol diet, counseled and educated about diet and exercise, Patient encouraged to come up with a personal goal for weight loss. Advice to start taking medication daily to prevent deadly problems such as MIs or CVAs pt verbalized understanding f/u 3 months Type 2 diabetes mellitus wit hout complication, without long-term current use of insulin 02/21/2022 Overview (08/22/2022): Last A1c: 12.1% Feb 04. Current therapy: - Trulicity 0.75mg/ weekly - Metformin 500mg 2 tabs BID - Rosuvastatin 40mg daily Assessment & Plan (03/17/2024 11:06 AM EST): Here for a f/u Patient admits he [...] to shortage, also did not increase to 3 ) Referred to our DM and Nutrition Program and Eye exam previously Microalbumin was 8.9 , Pt is on an LULU inhibitor . Will repeat Pt denies any Hx of Pancreatitis denies any Family hx of thyroid papillary carcinoma Plan:continue Metformin and Glipizide, keep Trulicity 0.75 mg once a week. Pt reports low readings and hypoglycemia Counseled and educated about diabetic diet and medication compliance No further adjustment to his regimen for now f/u 1 month Pt advised to: adhere to diabetic diet check your blood sugars regularly check your feet on a daily basis Assessment & Plan (06/05/2023 1:44 PM EDT): Uncontrolled, 2/2 on a lower Trulicity dose/ his usual dose is on back order He will continue Trulicity 0.75mg for now, will discuss with PCP if he wants to change to Ozempic 0.5mg/w as Trulicity 1.5 is not available yet No change in other medications Refer to CDTM pharmacy program Counseled re more frequent low calorie/carb meals. Encouraged physical activity as tolerated. FU in 3 months w/ PCP. Assessment & Plan (03/05/2023 1:30 PM EST): Here for a f/u Patient admits he does not follow a diabetic diet. He says he is taking his medications regularly he has a med box Hgb A1c 02/03/2023 was 8.7 From 12.1 He is on a regimen of Metformin XR 500 mg 2 tabs po BID and Trulicity 0.75 once a week Previously pt refused to consider any injectables, Referred to our DM and Nutrition Program and Eye exam previously Microalbumin was 8.9 , Pt is on an LULU inhibitor Pt denies any Hx of Pancreatitis m denies any Family hx of thyroid papillary carcinoma Plan: Increase Trulicity to 1.5 once a week Counseled and educated about diabetic diet and medication compliance No further adjustment to his regimen for now f/u 2 months Pt advised to: adhere to diabetic diet check your blood sugars regularly check your feet on a daily basis Assessment & Plan (02/03/2023 9:52 AM EST): Here for a f/u Patient admits he does not follow a diabetic diet. He says he is taking his medications regularly he has a med box Hgb A1c 02/03/2023 was From 12.1 He is on a regimen of Metformin XR 500 mg 2 tabs po BID and Trulicity 0.75 once a week Previously pt refused to consider any injectables, refused to consider Trulicity or Insulin. he states he is phobic to injections Last visit he agreed to start Trulicity Referred to our DM and Nutrition Program and Eye exam previously Microalbumin was 8.9 , Pt is on an LULU inhibitor Pt denies any Hx of Pancreatitis m denies any Family hx of thyroid papillary carcinoma Plan: Start Trulicity 0.75 once a week Counseled and educated about diabetic diet and medication compliance No further adjustment to his regimen for now f/u 3 months Pt advised to: adhere to diabetic diet check your blood sugars regularly check your feet on a daily basis Encounters Date Type Department Care Team Description 03/17/2024 10:30 AM EST Office Visit [facility] [address] [facility] [place] [address] Prasad Menezes MD S/P CABG (coronary artery bypass graft) (Primary Dx); Type 2 diabetes mellitus without complication, without long-term current use of insulin (CMS/[facility]); Ischemic heart disease; Acute cough; Essential hypertension; Mixed hyperlipidemia; Erectile dysfunction, unspecified erectile dysfunction type; Class 2 obesity; Dietary counseling; Exercise counseling 03/17/2024 Telephone [facility] [address] [facility] [place] [address] Prasad Menezes MD 03/17/2024 Telephone [facility] [address] [place] [address] Prasad Menezes MD 03/17/2024 Travel 03/07/2024 Telephone [facility] [address] [facility] [place] [address] Prasad Menezes MD 03/07/2024 Refill [facility] [address] [place] [address] Prasad Menezes MD 03/07/2024 Patient Outreach [facility] [address] [facility] [place] [address] Prasad Menezes MD Pre-visit Planning ([facility] screening was completed on 08/14/2023) 03/03/2024 Telephone [facility] [address] [place] [address] Prasad Menezes MD Chart Prep 02/25/2024 Telephone [facility] [address] [facility] [place] [address] Prasad Menezes MD Medication Question 02/24/2024 9:30 AM EST Office Visit [facility] [address] [place] [address] Jose Ortega MD Type 2 diabetes mellitus with unspecified complications ([facility]) (Primary Dx); Hx of CABG; Allergic reaction to fish 02/22/2024 Telephone [facility] [address] [place] [address] Jerri Anderson MA Chart Prep 02/22/2024 Telephone [facility] [address] [place], [place] [address] Prasad Menezes MD PA 02/19/2024 Telephone [facility] [address] [place], [place] [address] Joselyn Roger PharmD Appointment Confirmation 02/19/2024 Telephone [facility] [address] [place], [place] [address] Prasad Menezes MD No Show 02/19/2024 Telephone [facility] [address] [place], [place] [address] Prasad Menezes MD callback requested 02/18/2024 Telephone [facility] [address] [place], [place] [address] Jerri Anderson MA Chart Prep 02/10/2024 Patient Outreach [facility] [address] [place], [place] [address] Prasad Menezes MD 02/08/2024 Patient Outreach [facility] [address] [place], [place] [address] Prasad Menezes MD Transition Of Care (Tcm) 01/28/2024 Telephone [facility] [address] [place], [place] [address] Prasad Menezes MD 01/25/2024 Patient Outreach [facility] [address] [place], [place] [address] Prasad Menezes MD Transition Of Care (Tcm) (HDF- LVM #2) 01/25/2024 Telephone [facility] [place] [address] Prasad Menezes MD Hospital Follow-up 01/25/2024 Patient Outreach [facility] [address] [place], [place] [address] Prasad Menezes MD Transition Of Care (Tcm) (HDF- Unscheduled due to surgery ) 01/22/2024 Telephone [facility] [address] [place], [place] [address] Prasad Menezes MD callabck requested 01/22/2024 Telephone [facility] [address] [place] [address] Prasad Menezes MD 01/21/2024 Refill [facility] [address] [place] [address] Prasad Menezes MD Type 2 diabetes mellitus without complication, unspecified whether oil heaterman insulin use ([facility]) 01/19/2024 Telephone [facility] [address] [place] [address] Prasad Menezes MD Chart Prep 01/18/2024 Patient Outreach [facility] [address] [place] [address] Prasad Menezes MD Pre-visit Planning (SDOH screening was completed on 08/14/2023) 01/11/2024 Telephone [facility] [address] [place] [address] Prasad Menezes MD Nurse Triage 01/10/2024 Refill [facility] [address] [place], [place] [phone] Odalys Emery MD from Last 3 Months Immunizations Name Administration Dates Next Due Influenza injectable quadriv alent preservative free 02/23/2019 Influenza, seasonal, injecta ble, preservative free 01/04/2024 Pfizer Covid-19 Vaccine 12+ 03/12/2021,,07/19/2020 Pneumococcal Conjugate PCV 20 01/04/2024 Tdap 03/09/2022,10/10/2018 Family History Medical History Relation Name Comments Diabetes Maternal Grandmother Hypertension Maternal Grandmother Relation Name Status Comments Maternal Grandmother Social History Tobacco Use Types Packs/Day Years Used Date Smoking Tobacco: Former Cigarettes 0.3 32.1 S tarted: 1992 Passive Smoke Exposure: Past Smokeless Tobacco: Never Tobacco Cessation:Counseling Given: Not Answered Comments:Smoking about 7 cigs daily; has tried to quit previously about [...] the past 12 months, has t he electric, gas, oil or water company threatened to shut off services in your [...] not to disclose 2021 10:35 AM EDT Last Filed Vital Signs Vital Sign Reading [...] Mass Index 33.41 03/17/2024 10:23 AM EST Plan of Treatment Upcoming Encounters Date Type Department Care Team (Late st Contact Info) Description 05/03/2024 2:15 PM EST Office Visit [facility] [address] [place] [address] Prasad Menezes MD [address] [place], [place] [phone] 03/20/2025 2:30 PM EST Medication Management [facility] [address] [place], [place] [phone] Renetta Su, PharmD [address] [place], [place] [phone] Health Maintenance Due Date Last Done Comments HIV Screening 1980 Eye Exam 05/25/1989 Family Planning (PISQ) 05/25/1994 Hepatitis C Screening 05/25/1997 Hepatitis A Vaccines (1 of 2 - Risk 2-dose series) 05/25/1998 Hepatitis B Vaccines (1 of 3 - 19+ 3-dose series) 05/25/1998 Diabetes: Urine Protein Screening 12/12/2022 12/12/2021, 06/11/2020 Dental Oral Exam 10/09/2023 04/09/2023, 12/06/2018 Dental Prophylaxis 10/09/2023 04/09/2023 COVID-19 Vaccine ( season) 2023 03/12/2021, 08/09/2020, 07/19/2020 Lipid Panel 02/25/2024 02/24/2023, 11/15, 03/11/2021, Additional history exists Dental X-Ray: Bitewings 04/10/2024 04/09/2023, 12/06 Diabetes: Foot Exam 06/04/2024 06/05/2023, 06/05/2023, 06/05/2023, Additional history exists Diabetes: Hemoglobin A1C 06/15/2024 025, 01/04/2024, 06/05/2023, Additional history exists SDOH Screening 08/13/2024 08/14/2023 Alcohol/Substance Use Screening 03/17/2025 03/17/2024 Depression Screening 03/17/2025 03/17/2024, 03/17/19 Tobacco Screening 03/17/2025 03/17/2024 Dental X-Ray: Full Mouth 10/10/2025 10/09/2022, 11/15 Zoster Vaccines (1 of 2) 05/25/2029 DTaP/Tdap/Td Vaccines (3 - Td or Tdap) 03/09/2032 03/09/2022, 10/10/2018 RSV Patients and Patients Aged 60 years or older (1 - 1-dose 75+ series) 05/25/2054 Influenza Vaccine Completed 01/04/2024, 02/23/2019 Pneumococcal Vaccine: Pediatrics (0 to 5 Years) and At-Risk Patients (6 to 64 Years) Completed 01/04/2024 HIB Vaccines Aged Out No longer eligi ble based on patient's age to complete this topic HPV Vaccines Aged Out No longer eligi ble based on patient's age to complete this topic IPV Vaccines Aged Out No longer eligi ble based on patient's age to complete this topic Meningococcal Vaccine Aged Out No evens sean eligible based on patient's age to complete this topic RSV under 20 months Aged Out No longe r eligible based on patient's age to complete this topic Rotavirus Vaccines Aged Out No longer eligible based on patient's age to complete this topic Goals Goal Patient Goal Type Associated Problems Recent Progress Patient-Stated? Author Blood Pressure < 140/90 Blood Pressure 118/92(2024 10:23 AM EST) No Mary Kate Paul, AnuD Note: Check BP at home daily and record Eat less salt Diet No Mary Kate Paul, PharmD Note: Decrease sodium/ salt consumption Procedures Procedure Name Priority Date/Time Associated Diagnosis Comments POCT GLYCATED HEMOGLOBIN, TOTAL Routine 03/17/2024 10:36 AM EST Type 2 diabetes mellitus without complication, without long-term current use of insulin ([facility]) POCT GLUCOSE Routine 03/17/2024 10:34 AM EST Type 2 diabetes mellitus without complication, without long-term current use of insulin ([facility] [facility]) PROPHYLAXIS - ADULT Routine 04/09/2023 8 :00 AM EST Periodontal disease Dental calculus Encounter for dental examination Dental caries Gum inflammation BITEWINGS - 4 RADIOGRAPHIC IMAGES Routine 04/09/2023 8:00 AM EST Periodontal disease Dental calculus Encounter for dental examination Dental caries Gum inflammation PERIODIC ORAL EVALUATION - ESTABLISHED PATIENT Routine 04/09/2023 8:00 AM EST Periodontal disease Dental calculus Encounter for dental examination Dental caries Gum inflammation LIPID PANEL WITH REFLEX TO DIRECT LDL Routine 02/24/2023 8:38 AM EST Type 2 diabetes mellitus without complication, without long-term current use of insulin ([facility]) PANORAMIC RADIOGRAPHIC IMAGE Routine 10/09/2022 2:30 PM EDT Periodontal disease Dental caries ALBUMIN, RANDOM URINE W/CREATININE Routine 12/12/2021 11:27 AM EDT from Last 3 Months or Most Recently Relevant to Health Maintenance Results * (ABNORMAL) POCT HGB A1C (03/17/2024 [...] Media Lot # [id number] Lot# Expiration Date ,025 Blood Capillary blood specimen / Unknown 03/17/2024 10:34 AM EST us Prasad Thompson MD POINT OF CARE TEST EN TER/EDIT ORDERABLES Final Result * (ABNORMAL) Lipid Panel with Reflex to Direct LDL (02/24/2023 8:38 AM EST) Triglycerides 174(H) <150 mg/dL [facility] Comment:Desirable Triglyceri de: less than 150 mg/dLBorderline High Triglyceride 150-199 mg/dLHigh Triglyceride: 200-499 mg/dLVery High Triglyceride: greater than or equal to 5OO mg/dL Cholesterol 142 <200 mg/dL [facility] Comment:Desirable Cholestero l: less than 200 mg/dLBorderline High Cholesterol: 200-239 mg/dLHigh Cholesterol: greater than 239 mg/dL LDL Cholesterol Calculated 69 <100 mg/dL [facility] Comment:Desirable LDL: less than 100 mg/dLNear Optimal/Above Optimal LDL: 110- 129 mg/dLBorderline High LDL: 130-159 mg/dLHigh LDL: 160-189 mg/dLVery High LDL: greater than or equal to 190 mg/dL HDL Cholesterol 39(L) >40 mg/dL [facility] Comment:Desirable HDL: great er than 40 mg/dL Note: This HDL assay may give artificially low results in patients with liver disease. Blood 02/24/2023 8:38 AM EST 02/24/2023 11:12 AM EST us Prasad Thompson MD LAB BLOOD ORDERABLES Final Result [facility] [address] [place] [address] [phone] * (ABNORMAL) ALBUMIN, RANDOM URINE W/CREATININE (12/12/2021 11:27 AM EDT) Microalbumin Urine 8.9 See Note: mg/dL [facility] Comment: Reference Range: ?? Reference Range Not established Microalb/Creat Ratio 62(H) <30 mcg/mg creat [facility] Comment: ?? The ADA defines abnormalities in albumin excretion as follows: ?? Albuminuria Category ?Result (mcg/mg creatinine) ?? Normal to Mildly increased ?? <30 Moderately increased ? 30-299 ?? Severely increased ? > OR = 300 ?? The ADA recommends that at least two of three specimens collected within a 3-6 month period be abnormal before considering a patient to be within a diagnostic category. Creatinine, Urine 144 20 - 320 mg/dL [facility] 12/12/2021 11:2 7 AM EDT Prasad Thompson MD LAB URINE ORDERABLES Final Result [facility] from Last 3 Months or Most Recently Relevant to Health Maintenance Insurance HSN PARTIAL [facility] C3 DENTAL-[facility] MEDICAID STAND ADULT Care Teams Utilization Management Um Nurse Relationship Specialty Start Date End Date Prasad Menezes MD [address] [place] [phone] PCP - General Internal Medicine 10/12/18
--- OUTSIDE RECORDS SUMMARY | 2024-04-06 10:57 | XMS_ITS | Encounter Summary ---
Author Organization [employer] Address 75 [facility] 7 [place] [address] Care Team Providers Care Cork Insulation Installer Name Role Phone Prasad Menezes MD Primary Care Provide r Encounter Details Date Type Department Care Team ([facility] st Contact Info) Description 03/07/2024 Telephone [facility] [address] [place], [place] [phone] Prasad Menezes MD [address] [place], [place] [phone] Social History Tobacco Use Types Packs/Day Years [...] Date Recorded Patient Health Questionnaire-9 Score 0 02/03/2023 Patient Health Questionnaire-9 Score 0 02/03/2023 Last PHQ-9: Questionnaire Data Not on file 1 04/05/2022 Housing Stability Answer Date Recorded What is [...] Date Recorded Patient Health Questionnaire-2 Score 0 02/03/2023 Internet Access Answer Date Recorded Internet Access Q1 Yes 01/18/2024 Internet Access Q2 Not on file 01/18/2024 Sex and Gender Information Value Date Recorded Sex Assigned at Male 01/13/2022 10:35 AM EDT Legal Sex Male 10:35 AM EDT Gender Identity Male 01/13/2022 10:35 AM EDT Sexual Orientation Choose not to disclose 2021 10:35 AM EDT documented as of this encounter Plan of Treatment Upcoming Encounters Date Type Department Care Team (Late st Contact Info) Description 05/03/2024 2:15 PM EST Office Visit [facility] MED[facility]INE [address] [place] [phone] Prasad Menezes MD [address] [place] [phone] 03/20/2025 2:30 PM EST Medication Management [address] [address] Renetta Su PharmD [address] [place] [phone] documented as of this encounter Goals Goal Patient Goal Type Associated Problems Recent Progress Patient-Stated? Author Blood Pressure < 140/90 Blood Pressure 118/92(2024 10:23 AM EST) No Mary Kate Paul PharmD Note: Check BP at home daily and record Eat less salt Diet No Mary Kate Paul PharmD Note: Decrease sodium/ salt consumption documented as of this encounter Visit Diagnoses Not on filedocumented in this encounter Additional Health Concerns Assessment Noted Time PHQ-9 Depression Total Score: 0 02/04/20 23 9:35 AM EST documented as of this encounter Care Teams Cork Insulation Installer Relationship Specialty Start Date End Date Prasad Menezes MD [address] [place] [address] PCP - General Internal Medicine 10/12/18 documented as of this encounter
--- OUTSIDE RECORDS SUMMARY | 2024-04-06 10:57 | XMS_ITS | Encounter Summary ---
Author Organization [employer] Address 75 [facility] 7 [place] [address] Care Team Providers Care Fuel Quality Tech Name Role Phone Prasad Menezes MD Primary Care Provide r Encounter Details Date Type Department Care Team ([facility] st Contact Info) Description 03/17/2024 Telephone [facility] 230 [place], [place] [phone] Prasad Menezes MD [address] [place], [place] [phone] Social History Tobacco Use Types Packs/Day Years [...] Description 05/03/2024 2:15 PM EST Office Visit [facility] [address] [place] [phone] Prasad Menezes MD [address] [place] [address] 03/20/2025 2:30 PM EST Medication Management [address] [address] Renetta Su PharmD [address] [place] [phone] documented as of this encounter Goals Goal [...] documented as of this encounter Care Teams Fuel Quality Tech Relationship Specialty Start Date End Date Prasad Menezes MD [address] [place] [address] PCP - General Internal Medicine 10/12/18 documented as of this encounter
--- OUTSIDE RECORDS SUMMARY | 2024-04-06 10:57 | XMS_ITS | Encounter Summary ---
Author Organization [employer] Address 75 [facility] 7 [place] [address] Care Team Providers Care Real Estate Legal Assistant Name Role Phone Prasad Menezes MD Primary Care Provide r Encounter Details Date Type Department Care Team ([facility] st Contact Info) Description 03/17/2024 Telephone [facility] [address] [place], [place] [phone] Prasad Menezes MD 230 [place], [place] [phone] Social History Tobacco Use Types Packs/Day Years [...] 05/03/2024 2:15 PM EST Office Visit [facility] [address] [place] [phone] Prasad Menezes MD [address] [place] [address] 03/20/2025 2:30 PM EST Medication Management [address] [address] Renetta Su PharmD [address] [place] [address] documented as of this encounter Goals Goal [...] documented as of this encounter Care Teams Real Estate Legal Assistant Relationship Specialty Start Date End Date Prasad Menezes MD [address] [place] [address] PCP - General Internal Medicine 10/12/18 documented as of this encounter
--- OUTSIDE RECORDS SUMMARY | 2024-04-06 10:57 | XMS_ITS | Encounter Summary ---
Author Organization [employer] Address 75 [facility] 7t [place] [address] Care Team Providers Care Maintenance Parts Technician Name Role Phone Prasad Menezes MD Primary Care Provide r Encounter Details Date Type Department Care Team (Latest Contact Info) Description 03/17/2024 Travel Social History Tobacco Use Types Packs/Day Years [...] Description 05/03/2024 2:15 PM EST [facility] [address] [place] [address] Prasad Menezes MD [address] [place] [address] 03/20/2025 2:30 PM EST Medication Management [facility] [address] [place] [phone] Renetta Su PharmD [address] [place] [address] documented as of this encounter Goals Goal [...] documented as of this encounter Care Teams Maintenance Parts Technician Relationship Specialty Start Date End Date Prasad Menezes MD [address] [place] [address] PCP - General Internal Medicine 10/12/18 documented as of this encounter
--- OUTSIDE RECORDS SUMMARY | 2024-04-06 10:57 | XMS_ITS | Encounter Summary ---
Author Organization [employer] Address 75 [facility] 7 [place] [address] Care Team Providers Care Card Table Attendant Name Role Phone Prasad Menezes MD Primary Care Provide r Reason for Visit * Reason Onset Date Comments Med Refill 03/07/2024 Encounter Details Date Type Department Care Team ([facility] st Contact Info) Description 03/07/2024 Refill [facility] [address] [place] [address] Prasad Menezes MD 230 [place] [address] Social History Tobacco Use Types Packs/Day Years [...] the past 12 months, has t he [employer] gas, oil or water company threatened to [...] Description 05/03/2024 2:15 PM EST Office Visit [facility]INE [address] [place] [phone] Prasad Menezes MD [address] [place] [address] 03/20/2025 2:30 PM EST Medication Management [facility] [address] [place] [address] Renetta Su PharmD [address] [place] [address] documented as of this encounter Goals Goal Patient Goal Type Associated Problems Recent Progress Patient-Stated? Author Blood Pressure < 140/90 Blood Pressure 118/92(2024 10:23 AM EST) No Mary Kate Paul PharmD Note: Check BP at home daily and record Eat less salt Diet No Paul, Jerril, PharmD Note: Decrease sodium/ salt consumption documented as of this encounter Visit Diagnoses Not on filedocumented in this encounter Additional Health Concerns Assessment Noted Time PHQ-9 Depression Total Score: 0 02/04/20 23 9:35 AM EST documented as of this encounter Care Teams Card Table Attendant Relationship Specialty Start Date End Date Prasad Menezes MD [address] [place] [address] PCP - General Internal Medicine 10/12/18 documented as of this encounter
--- OUTSIDE RECORDS SUMMARY | 2024-04-06 10:58 | XMS_ITS | Encounter Summary ---
Author Organization [employer] Address [address] [place] [address] 7 [place] [address] Care Team Providers Care Astronomy Department Chair Name Role Phone Prasad Menezes MD Primary Care Provide r Reason for Visit * Reason Comments Med Refill Encounter Details Date Type Department Care Team ([facility] Contact Info) Description 12/17/2022 Refill [facility] [address] [place] [phone] Prasad Menezes MD 230 [place] [address] Type 2 diabetes mellitus without complication, unspecified whether senior care insulin use ([facility]) Social History Tobacco Use Types Packs/Day Years Used Date Smoking Tobacco: Every Day Cigarettes 0.3 32.1 Started: 1993 Smokeless Tobacco: Never Comments:Smoking about 7 cig s daily; has tried to quit previously about 3 times. Alcohol Use Standard Drinks/Week Comments Yes 0 (1 standard drink = 0.6 oz pur e alcohol) socially Sex and Gender Information Value Date Recorded Sex Assigned at Male 01/13/2022 10:35 AM EDT Legal Sex Male 10:35 AM EDT Gender Identity Male 01/13/2022 10:35 AM EDT Sexual Orientation Choose not to disclose 2021 10:35 AM EDT documented as of this encounter Plan of Treatment Upcoming Encounters Date Type Department Care Team (Late Contact Info) Description 05/03/2024 2:15 PM EST Office Visit [facility] [address] [place] [phone] Prasad eMnezes MD 230 [place], [place] [phone] 03/20/2025 2:30 PM EST Medication Management [facility] 230 [place], [place] [phone] Renetta Su PharmD 230 [place], [place] [phone] documented as of this encounter Goals Goal Patient Goal Type Associated Problems Recent Progress Patient-Stated? Author Blood Pressure < 140/90 Blood Pressure 118/92(2024 10:23 AM EST) No Mary Kate Paul PharmD Note: Check BP at home daily and record Eat less salt Diet No Mary Kate Paul PharmD Note: Decrease sodium/ salt consumption documented as of this encounter Visit Diagnoses Diagnosis Type 2 diabetes mellitus without complication, unspecified whether termite renewal inspector insulin use ([facility]) documented in this encounter Care Teams Astronomy Department Chair Relationship Specialty Start Date End Date Prasad Menezes MD [address] [place] [address] [phone] PCP - General Internal Medicine 10/12/18 documented as of this encounter
--- OUTSIDE RECORDS SUMMARY | 2024-04-06 10:58 | XMS_ITS | Encounter Summary ---
Author Organization [employer] Address 75 [facility] 7 [place] [address] Care Team Providers Care Delivery Manager Name Role Phone Prasad Menezes MD Primary Care Provide r Encounter Details Date Type Department Care Team ([facility] st Contact Info) Description 01/28/2024 Telephone [facility] 230 [place], [place] [phone] Prasad Menezes MD 230 [place], [place] [phone] Social History Tobacco Use Types Packs/Day Years [...] Description 05/03/2024 2:15 PM EST Office Visit [facility]INE [address] [place] [phone] Prasad Menezes MD [address] [place] [address] 03/20/2025 2:30 PM EST Medication Management [address] [address] Renetta Su PharmD [address] [place] [address] documented as of this encounter Goals Goal [...] documented as of this encounter Care Teams Delivery Manager Relationship Specialty Start Date End Date Prasad Menezes MD [address] [place] [address] PCP - General Internal Medicine 10/12/18 documented as of this encounter
--- OUTSIDE RECORDS SUMMARY | 2024-04-06 10:58 | XMS_ITS | Encounter Summary ---
Author Organization [employer] Address 75 [facility] 7 [place] [address] Care Team Providers Care Regional Facilities Manager Name Role Phone Prasad Menezes MD Primary Care Provide r Reason for Visit * Reason Comments Pre-visit Planning SDOH screening was c ompleted on 08/14/2023 Encounter Details Date Type Department Care Team ([facility] st Contact Info) Description 03/07/2024 Patient Outreach [facility] [address] [place], [place] [phone] Prasad Menezes MD [address] [place], [place] [phone] Pre-visit Planning (SDOH screening was completed on 08/14/2023) Social History Tobacco Use Types Packs/Day Years [...] AM EDT documented as of this encounter Progress Notes * Pearl Hopper - 03/07/2024 10:57 AM EST YINKA Rice placed successful outbound call to patient for pre-visit planning. Patient name and confirmed. Patient confirms appt date and time, and has transportation arrangements. Biggest concern for appointment at this time is patient haven't received a referral or appointment for physical therapy. Patient advised to bring to appointment a photo id and insurance card. Appropriate screenings completed in anticipation of appointment. documented in this encounter Plan of Treatment Upcoming Encounters Date Type Department Care Team (Late st Contact Info) Description 05/03/2024 2:15 PM EST Office Visit [facility] 230 [place], [place] [phone] Prasad Menezes MD [address] [place] [address] 03/20/2025 2:30 PM EST Medication Management [facility] [address] [place] [address] Renetta Su, AnuD [address] [place] [address] documented as of this encounter Goals Goal [...] documented as of this encounter Care Teams Regional Facilities Manager Relationship Specialty Start Date End Date Prasad Menezes MD [address] [place] [address] PCP - General Internal Medicine 10/12/18 documented as of this encounter
--- OUTSIDE RECORDS SUMMARY | 2024-04-06 10:58 | XMS_ITS | Encounter Summary ---
Author Organization [employer] Address 75 [facility] 7 [place] [address] Care Team Providers Care Seaman Officer Name Role Phone Prasad Menezes MD Primary Care Provide r Reason for Visit * Reason Onset Date Comments Hospital Follow-up 01/25/2024 Encounter Details Date Type Department Care Team ([facility] st Contact Info) Description 01/25/[address] [facility] 230 [place], [place] [phone] Prasad Menezes MD 230 [place], [place] [phone] Hospital Follow-up Social History Tobacco Use Types Packs/Day Years [...] AM EDT documented as of this encounter Miscellaneous Notes * Telephone Encounter - Arlene Huddleston - 01/25/2024 10:26 AM EST Tc from pt requesting a HDF appt. Hospital: [facility] Date of admission: 01/11/2024 Discharge date: 01/24/2024 Diagnosed: Cardiac Surgery *Send message to [facility] Clinical Care Coordinators documented in this encounter Plan of Treatment Upcoming Encounters Date Type Department Care Team (Late st Contact Info) Description 05/03/2024 2:15 PM EST Office Visit [facility] [address] [place] [address] Prasad Menezes MD [address] [place] [phone] 03/20/2025 2:30 PM EST Medication Management [facility] [address] [place] [address] [phone] Renetta Su, AnuD [address] [place] [address] documented as of this encounter Goals Goal [...] documented as of this encounter Care Teams Seaman Officer Relationship Specialty Start Date End Date Prasad Menezes MD [address] [place] [phone] PCP - General Internal Medicine 10/12/18 documented as of this encounter
--- OUTSIDE RECORDS SUMMARY | 2024-04-06 10:58 | XMS_ITS | Encounter Summary ---
Author Organization [employer] Address 75 [facility] 7 [place] [address] Care Team Providers Care Auto Body Customizer Name Role Phone Prasad Menezes MD Primary Care Provide r Reason for Visit * Reason Onset Date Comments Hospital Follow-up 01/21/2023 Encounter Details Date Type Department Care Team ([facility] st Contact Info) Description 01/21/2023 Telephone [facility] MEDICINE 230 [place], [place] [phone] Prasad Menezes MD 230 [place], [place] [phone] Hospital Follow-up Social History Tobacco Use Types Packs/Day Years Used Date Smoking Tobacco: Every Day Cigarettes 0.3 32.1 Started: 1992 Smokeless Tobacco: Never Comments:Smoking about 7 cig s daily; has tried to quit previously about 3 times. Alcohol Use Standard Drinks/Week Comments Yes 0 (1 standard drink = 0.6 oz pur e alcohol) socially Housing Stability Answer Date Recorded What is your housing situation today? I have estela sing 01/22/[address] you li [...] off services in your home? No 01/22/2023 Sex and Gender Information Value Date Recorded Sex Assigned at Male 01/13/2022 10:35 AM EDT Legal Sex Male 10:35 AM EDT Gender Identity Male 01/13/2022 10:35 AM EDT Sexual Orientation Choose not to disclose 2021 10:35 AM EDT documented as of this encounter Miscellaneous Notes * Telephone Encounter - Polly Huynh - 01/21/2023 12:45 PM EST Tc from [facility] requesting a HDF appointment. Pt was admitted at [facility] for [facility] chest [facility] Pt will be discharged today 01/21. Was advised will forward to team nurse for f/u. Please contact pt at [phone] documented in this encounter Plan of Treatment Upcoming Encounters Date Type Department Care Team (Late st Contact Info) Description 05/03/2024 2:15 PM EST Office Visit [facility] MEDICINE [address] [place] [phone] Prasad Menezes MD [address] [place] [address] 03/20/2025 2:30 PM EST Medication Management [facility] MED[facility]INE [address] [place] [address] Renetta Su PharmD [address] [place] [address] documented as of this encounter Goals Goal Patient Goal Type Associated Problems Recent Progress Patient-Stated? Author Blood Pressure < 140/90 Blood Pressure 118/92(2024 10:23 AM EST) No Paul, Jerril, PharmD Note: Check BP at home daily and record Eat less salt Diet Mary Kate Carlisle, Yefri Note: Decrease sodium/ salt consumption documented as of this encounter Visit Diagnoses Not on filedocumented in this encounter Care Teams Auto Body Customizer Relationship Specialty Start Date End Date Prasda Menezes MD [address] [place] [phone] PCP - General Internal Medicine 10/12/18 documented as of this encounter
--- OUTSIDE RECORDS SUMMARY | 2024-04-06 10:58 | XMS_ITS | Encounter Summary ---
Author Organization [employer] Address 75 [facility] 7 [place] [address] Care Team Providers Care Direct Marketing Coordinator Name Role Phone Prasad Menezes MD Primary Care Provide r Encounter Details Date Type Department Care Team (Late st Contact Info) Description 04/23/2023 Abstract [facility] [address] [place] [address] Marcos, Gia [address] [place] [address] Social History Tobacco Use Types Packs/Day Years [...] is your housing situation today? I have estelaveda simon 01/22/[address] you [...] Recorded Patient Health Questionnaire-2 Score 0 02/03/2023 Sex and Gender Information Value Date Recorded [...] Description 05/03/2024 2:15 PM EST Office Visit [facility] [address] [place] [phone] Prasad Menezes MD [address] [place] [address] 03/20/2025 2:30 PM EST Medication Management [facility] [address] [place] [address] Renetta Su PharmD [address] [place] [phone] documented as of this encounter Goals Goal [...] documented as of this encounter Care Teams Direct Marketing Coordinator Relationship Specialty Start Date End Date Prasad Menezes MD 230 [place] [address] PCP - General Internal Medicine 10/12/18 documented as of this encounter
--- OUTSIDE RECORDS SUMMARY | 2024-04-06 10:58 | XMS_ITS | Encounter Summary ---
Author Organization [employer] Address [address] [place] [address] 7 [place] [address] Care Team Providers Care Lithographed Plate Inspector Name Role Phone Prasad Menezes MD Primary Care Provide r Encounter Details Date Type Department Care Team (Latest Contact Info) Description 12/06/2018 Abstract [facility] CONVERSIONS Dental, Provider, DDS Social History Tobacco Use Types Packs/Day Years Used Date Smoking Tobacco: Never Assessed Sex and Gender Information Value Date Recorded [...] Description 05/03/2024 2:15 PM EST Office Visit [facility] [address] [place] [phone] Prasad Menezes MD [address] [place] [phone] 03/20/2025 2:30 PM EST Medication Management [facility] [address] [place] [phone] Renetta Su, AnuD [address] [place] [address] documented as of this encounter Visit Diagnoses Not on filedocumented in this encounter Care Teams Lithographed Plate Inspector Relationship Specialty Start Date End Date Prsaad Menezes MD [address] [place] [address] PCP - General Internal Medicine 10/12/18 documented as of this encounter
--- OUTSIDE RECORDS SUMMARY | 2024-04-06 10:58 | XMS_ITS | Encounter Summary ---
Author Organization [employer] Address [address] [facility] 7 [place] [address] Care Team Providers Care Binding Machine Operator Name Role Phone Prasad Menezes MD Primary Care Provide r Reason for Visit * Reason Onset Date Comments callabck requested 01/22/2024 Encounter Details Date Type Department Care Team ([facility] st Contact Info) Description 01/22/2024 Telephone [facility] [address] [place] [address] Prasad Menezes MD [address] [place] [address] callabck requested Social History Tobacco Use Types Packs/Day Years [...] * Telephone Encounter - Arlene Huddleston - 01/22/2024 9:59 AM EST Tc from Spouse Lilia requesting a callback due to pt being hospitalized for an open heart surgery, Spouse is worried as she had to cancel apt. Pt doesn't know discharge date. documented in this encounter Plan of Treatment Upcoming Encounters Date Type Department Care Team (Late st Contact Info) Description 05/03/2024 2:15 PM EST Office Visit [facility] [address] [place] [address] [phone] Prasad Menezes MD [address] [place], [place] [phone] 03/20/2025 2:30 PM EST Medication Management [facility] [address] [place] [address] [phone] Renetta Su, PharmD [address] [place], [place] [phone] documented as of this encounter Goals Goal [...] documented as of this encounter Care Teams Binding Machine Operator Relationship Specialty Start Date End Date Prasad Menezes MD [address] [place] [address] PCP - General Internal Medicine 10/12/18 documented as of this encounter
--- OUTSIDE RECORDS SUMMARY | 2024-04-06 10:58 | XMS_ITS | Encounter Summary ---
Author Organization [employer] Address [address] [place] [address] 7 [place] [address] Care Team Providers Care Human Resource Advisor Name Role Phone Prasad Menezes MD Primary Care Provide r Reason for Referral * Imaging (Routine) - Closed Specialty Diagnoses / Procedures Referred By Contac t Referred To Contact Diagnoses Ischemic heart disease Procedures Cardiac rehab evaluation Prasad Menezes MD [address] [place] [phone] Phone: tel: fax: Referral ID Status Reason Start Date Expiration Date Visits Re quested Visits Authorized [id number] Closed 03/02/2024 03/02/2025 1 1 Reason for Visit * Reason Onset Date Comments PA 02/22/2024 Encounter Details Date Type Department Care Team (Late st Contact Info) Description 02/22/2024 Telephone [facility] [address] [place] [phone] Prasad Menezes MD [address] [place] [address] PA Social History Tobacco Use Types Packs/Day Years [...] encounter Miscellaneous Notes * Telephone Encounter - Emily Huddleston - 03/30/2024 1:53 PM EST Patient had an appointment on 03/22/2024, notes under media. * Telephone Encounter - Mariza Alejandra RN - 03/08/2024 12:06 PM EST TC placed to Greg at [facility] and LVM to call back the office * Telephone Encounter - Johnathan Bermeo - 03/08/2024 11:41 AM EST Tc from Greg with [facility] requesting call back to verify PA. Please contact Greg at [phone]. * Telephone Encounter - Jeremiah Barksdale - 02/22/2024 11:57 AM EST Tc from pt stating that he need a a PA to start his care at [facility]. If any questions Contact pt at [phone] documented in this encounter Plan of Treatment Upcoming Encounters Date Type Department Care Team (Late st Contact Info) Description 05/03/2024 2:15 PM EST Office Visit [facility] [address] [place] [address] Prasad Menezes MD [address] [place] [address] 03/20/2025 2:30 PM EST Medication Management [facility] [address] [place] [address] Renetta Su PharmD [address] [place] [address] Scheduled Orders Name Type Priority Associated Diagnoses Orde r Schedule Cardiac rehab evaluation Card Rehab Routine Ischemic heart disease Expected: 03/02/2024 (Approximate), Expires: 03/02/2025 documented as of this encounter Goals Goal Patient Goal Type Associated Problems Recent Progress Patient-Stated? Author Blood Pressure < 140/90 Blood Pressure 118/92(2024 10:23 AM EST) No Mary Kate Paul PharmD Note: Check BP at home daily and record Eat less salt Diet No Mary Kate Paul PharmD Note: Decrease sodium/ salt consumption documented as of this encounter Visit Diagnoses Diagnosis Ischemic heart disease- Primary Other specified forms of chronic ischemic heart disease documented in this encounter Additional Health Concerns Assessment Noted Time PHQ-9 Depression Total Score: 0 02/04/20 23 9:35 AM EST documented as of this encounter Care Teams Human Resource Advisor Relationship Specialty Start Date End Date Prasad Menezes MD [address] [place] [phone] PCP - General Internal Medicine 10/12/18 documented as of this encounter
--- OUTSIDE RECORDS SUMMARY | 2024-04-06 10:58 | XMS_ITS | Encounter Summary ---
Author Organization [employer] Address [address] [facility] 7 [place] [address] Care Team Providers Care Luster Repairer Name Role Phone Prasad Menezes MD Primary Care Provide r Reason for Visit * Reason Onset Date Comments Medication Question 02/25/2024 Encounter Details Date Type Department Care Team ([facility] st Contact Info) Description 02/25/2024 Telephone [facility] MED[facility] [address] [place], [place] [phone] Prasad Menezes MD [address] [place], [place] [phone] Medication Question Social History Tobacco Use Types Packs/Day Years [...] encounter Miscellaneous Notes * Telephone Encounter - Danyell Tubbs RN - 02/25/2024 2:16 PM EST Call returned to pt via [employer] Jm #[id number] re: message below. Pt states that he will not change diabetic medications as recommended at ov 02/24/24. Pt states her prefers to wait for upcoming appt with pcp scheduled 03/17/23. Reviewed recommendations from last office visit. Pt maintains thathe prefers to wait for scheduled pcp appt. Will forward to pcp as FYI. * Telephone Encounter - Johnathan Bermeo - 02/25/2024 11:26 AM EST Tc from pt stating he was seen with Dr. Ortega yesterday 02/23 and during visit provider made some changes to medication which pt is not totally comfortable with and would like a call back to further discuss. Please contact pt at [phone]. (Bolivian Speaker) documented in this encounter Plan of Treatment Upcoming Encounters Date Type Department Care Team (Late st Contact Info) Description 05/03/2024 2:15 PM EST Office Visit [facility] [place] [address] [place] [address] 03/20/2025 2:30 PM EST Medication Management [facility] [address] [place] [address] Renetta Su PharmD [address] [place] [address] documented as of this encounter Goals Goal [...] documented as of this encounter Care Teams Luster Repairer Relationship Specialty Start Date End Date [place] [address] PCP - General Internal Medicine 10/12/18 documented as of this encounter
--- OUTSIDE RECORDS SUMMARY | 2024-04-06 10:58 | XMS_ITS | Encounter Summary ---
Author Organization [employer] Address [address] [facility] 7 [place] [address] Care Team Providers Care Sanitary Landfill Operator Name Role Phone Prasad Menezes MD Primary Care Provide r Encounter Details Date Type Department Care Team ([facility] st Contact Info) Description 01/22/2024 Telephone [facility]INE [address] [place], [place] [phone] Prasad Menezes MD [address] [place], [place] [phone] Social History Tobacco Use Types Packs/Day Years [...] is your housing situation today? I have setela simon 01/22/[address] you [...] 05/03/2024 2:15 PM EST Office Visit [facility] MED[facility]INE [address] [place] [phone] Prasad Menezes MD [address] [place] [address] 03/20/2025 2:30 PM EST Medication Management [address] [address] Renetta Su PharmD [address] [place] [phone] documented as of this encounter Goals Goal [...] documented as of this encounter Care Teams Sanitary Landfill Operator Relationship Specialty Start Date End Date Prasad Menezes MD [address] [place] [address] PCP - General Internal Medicine 10/12/18 documented as of this encounter
--- OUTSIDE RECORDS SUMMARY | 2024-04-06 10:59 | XMS_ITS | Encounter Summary ---
Author Organization [employer] Address [address] [place] [address] Care Team Providers Care Crew Boss Name Role Phone Sydnee Vale MD Primary Care Provider + [phone] Reason for Visit * Reason Comments Hospital Follow-up Encounter Details Date Type Department Care Team (Latest Contact Info) Description 03/29/2024 2:10 PM EST Office Visit [facility] [address] [place] [phone] Joselyn Freeman, MEEK [address] [place] [address] Coronary artery disease, unspecified vessel or lesion type, unspecified whether angina present, unspecified whether upper sioux or transplanted heart (Primary Dx); Primary hypertension; Pure hypercholesterolemia Social History Tobacco Use Types Packs/Day Years Used Date Smoking Tobacco: Former Cigarettes Smokeless Tobacco: Never Tobacco Cessation:Counseling Given: Not Answered Comments:Quit December 2023 Alcohol Use Standard Drinks/Week Comments Not Currently 0 (1 standard drink = 0.6 oz pur e alcohol) Sex and Gender Information Value Date Recorded Sex Assigned at Not on file Gender Identity Not on file Sexual Orientation Not on file Job Start Date Occupation Industry Not on file Not on file Not on file documented as of this encounter Last Filed Vital Signs Vital Sign Reading Time Taken Comments Blood Pressure 128/80 03/29/2024 2:19 PM EST Pulse 96 03/29/2024 2:19 PM EST Temperature - - Respiratory Rate - - Oxygen Saturation 97% 03/29/2024 2:19 PM EST Inhaled Oxygen Concentration - - Weight 97.5 kg (215 lb) 03/29/2024 2:19 PM EST Height 167.6 cm (5' 6 ) 03/29/2024 2:19 PM EST Body Mass Index 34.7 03/29/2024 2:19 PM EST documented in this encounter Progress Notes * Joselyn Freeman NP - 03/29/2024 2:10 PM ESTAssociated Problem(s): CAD (coronary artery disease) The patient denies any anginal sounding chest discomfort following multivessel CABG 2 months ago. His chest soreness is improving. He does not have any sternal instability on examination today. He has been taking his medications as directed including aspirin, Plavix, beta-helen, statin and calcium channel helen. * Joselyn Freeman NP - 03/29/2024 2:10 PM ESTAssociated Problem(s): Hypertension The patient's blood pressure is well-controlled in office today. Continue beta- helen and calcium channel helen. Certainly increased exercise and weight loss will help with his blood pressure control as well. * Joselyn Freeman NP - 03/29/2024 2:10 PM ESTAssociated Problem(s): HLD (hyperlipidemia) The patient's LDL during his hospitalization for his CABG is 75. He tells me that though PCSK9 inhibitor was at one point added to his medication regimen in our chart, he was never notified by his pharmacy to pick it up and therefore never started it. Will have him update his fasting lipid profile at his convenience in the next week or so as sometimes LDL may be falsely reassuring in the setting of significant illness (such as NSTEMI/hospitalization at the time of his CABG). It is LDL remains greater than 70, may need to revisit additional therapy such as Zetia or PCSK9 inhibitors. His goal LDL should be less than 70, ideally as close to 50 as possible given his young age with significant CAD requiring CABG. Diabetes management is also paramount. 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 old male here for cardiac follow up of: 1) CAD -Prior NSTEMI 02/2019 receiving a JEANNIE to the mid RCA with preserved LVEF 2) hypertension 3) hyperlipidemia Past medical history also significant for DM2, prior smoking, and non-adherence missing multiple office visits. He initially presented to [facility] in 01/2024 with chest discomfort and weakness with a positive stress test, transferred to [facility] and undergoing cardiac catheterization which revealed three-vessel CAD. Echocardiogram at [facility] 01/14/2024 shows LVEF normal 55 to 60%, no wall motion abnormalities, without hemodynamically significant valve disease. He had a four-vesselCABG with Dr. Jordan in 01/2024 with a VELAZQUEZ to the LAD, SVG to the PDA, sequential SVG to the PLV and OM 2. There was attempt at harvesting the left radial artery but it was aborted due to Allens failure after cutdown. Recommendation for DAPT with Plavix and aspirin for 1 year following NSTEMI He has not had any exertional chest discomfort when he is active. He is somewhat fatigued in general. He has some soreness to his chest, specifically the left side, and at times, he feels a clicking.This is improving as he gets farther away from his surgery. CT surgery has signed off. The patient denies shortness of breath with rest or exertion, palpitations, syncope/presyncope, edema, PND or orthopnea and sleeps on 2 pillows a night. ACTIVE MEDICATIONS: Outpatient Medications Marked as Taking for the 03/29/24 encounter (Office Visit) with Joselyn Freeman NP Medication Sig Dispense Refill amLODIPine (NORVASC) 10 mg tablet Take 1 tablet (10 mg total) by mouth 1 (one) time each day. aspirin 81 mg chewable tablet Take 81 mg by mouth daily. carvediloL (COREG) 25 mg tablet Take 1 Tablet by mouth 2 times daily (with meals). clopidogreL (PLAVIX) 75 mg tablet Take 1 tablet (75 mg total) by mouth 1 (one) time each day. dulaglutide (Trulicity) 0.75 mg/0.5 mL pen injector injection Inject 0.5 mL (0.75 mg total) under the skin every 7 (seven) days. glipiZIDE (GLUCOTROL) 10 mg tablet Take 1 tablet (10 mg total) by mouth 1 (one) time each day. metFORMIN (GLUCOPHAGE) 500 mg tablet Take 500 mg by mouth 2 times daily (with meals). nitroglycerin (NITROSTAT) 0.[address] 1 Tablet under the tongue every 5 minutes as needed for Chest pain. rosuvastatin (CRESTOR) 40 mg tablet Take 40 mg by mouth daily. PAST MEDICAL HISTORY: Patient Active Problem List Diagnosis Date Noted Date Diagnosed HLD (hyperlipidemia) 11/25/2021 Hypertension 05/28/2021 CAD (coronary artery disease) 06/04/2020 NSTEMI with JEANNIE to mid RCA 02/2019 Four-vessel CABG 01/[address] Jordan with VELAZQUEZ to the LAD, SVG to the PDA, sequential SVG to the PLV and OM 2 Resolved Problems Diagnosis Date Diagnosed ACS (acute coronary syndrome) (CMS/HCC) Stable angina (CMS/HCC) ALLERGIES: Allergies Allergen Reactions Fish Oil (Anchovy, Sardine) SOCIAL HISTORY: Social History Tobacco Use Smoking status: Former Types: Cigarettes Smokeless tobacco: Never Tobacco comments: Quit December 2023 Substance Use Topics Alcohol use: Not Currently PHYSICAL EXAM: Vitals: 03/29/24 1419 BP: 128/80 BP Location: Right arm Patient Position: Sitting BP Cuff Size: Large adult Pulse: 96 SpO2: 97% Weight: 97.5 kg (215 lb) Height: 1.676 m (66 ) GENERAL: WDWN 43 y.o. male resting comfortably on the exam table in no acute distress HEENT: NCAT, negative JVD, carotid pulses +2 bilaterally, without bruit RESPIRATORY: Lungs clear, No wheezes/rales/rhonchi CARDIAC: S1S2, RRR no Murmur/heaves/rubs/gallops, no S3S4 EXTREMITIES: no edema PULSES: Radial and Pedal +2 bilaterally NEURO: A&Ox3 MS: Moving all extremities without focal findings. EKG: Encounter Date: 03/29/24 ECG 12 lead Result Value Ventricular Rate ECG 96 Atrial Rate 96 P-R Interval 160 QRS Duration 104 Q-T Interval 352 QTc 444 P Wave [place] 56 R [place] 72 ECG Interpretation Normal sinus rhythm Nonspecific T wave abnormality , asymptomatic, s/p CABG Abnormal ECG When compared with ECG of 11-JAN-2024 10:23, Nonspecific T wave abnormality, worse in Inferior leads *Note: Due to a large number of results and/or encounters for the requested time period, some results have not been displayed. A complete set of results can be found in Results Review. TESTING: Last BMP 01/14/2024 NA 138 K 3.9 CL 101 CO2 26 BUN 16 Creat 0.79 AST 10 ALT 13 Hemoglobin A1c 7.9 Last CBC 01/14/2024 WBC 8.7 Hgb 13.5 Hct 39.1 Plt 325 Last lipid 01/14/2024 TC 180 TG 373 HDL 30 LDL 75 As per AHA guidelines and previously established plan of care by Dr. John, we discussed the following today: ASSESSMENT/PLAN: Assessment & Plan Coronary artery disease, unspecified vessel or lesion type, unspecified whether angina present, unspecified whether upper sioux or transplanted heart The patient denies any anginal sounding chest discomfort following multivessel CABG 2 months ago. His chest soreness is improving. He does not have any sternal instability on examination today. He has been taking his medications as directed including aspirin, Plavix, beta-helen, statin and calcium channel helen. Primary hypertension The patient's blood pressure is well-controlled in office today. Continue beta- helen and calcium channel helen. Certainly increased exercise and weight loss will help with his blood pressure control as well. Pure hypercholesterolemia The patient's LDL during his hospitalization for his CABG is 75. He tells me that though PCSK9 inhibitor was at one point added to his medication regimen in our chart, he was never notified by his pharmacy to pick it up and therefore never started it. Will have him update his fasting lipid profile at his convenience in the next week or so as sometimes LDL may be falsely reassuring in the setting of significant illness (such as NSTEMI/hospitalization at the time of his CABG). It is LDL remains greater than 70, may need to revisit additional therapy such as Zetia or PCSK9 inhibitors. His goal LDL should be less than 70, ideally as close to 50 as possible given his young age with significant CAD requiring CABG. Diabetes management is also paramount. Orders Placed This Encounter Procedures Lipid panel with reflex to direct LDL ECG 12 lead Thank you for allowing us to participate in the care of this patient. The patient will follow up in3 months with tish Diop. This note is completed with voice recognition software. Please pardon any grammatical or syntax errors. I personally spent a total of 30 minutes, including both yvio-uf-ggpx and wbp-cyyt-kz-face time on the date of the encounter, addressing the above diagnoses. Activities performed in this time includechart review, obtaining / reviewing history, performing a medically necessary evaluation, documentation and counseling including medical decision making of 1. Coronary artery disease, unspecified vessel or lesion type, unspecified whether angina present, unspecified whether upper sioux or transplanted heart 2. Primary hypertension 3. Pure hypercholesterolemia . documented in this encounter Plan of Treatment Scheduled Orders Name Type Priority Associated Diagnoses Orde r Schedule Lipid panel with reflex to direct LDL Lab Routine Coronary artery disease, unspecified vessel or lesion type, unspecified whether angina present, unspecified whether upper sioux or transplanted heart Primary hypertension Pure hypercholesterolemia 1 Occurrences starting 03/29/2024 until 03/29/2025 documented as of this encounter Procedures Procedure Name Priority Date/Time Associated Diagnosis Comments ECG 12-LEAD Routine 03/29/2024 3:31 PM EST Coronary artery disease, unspecified vessel or lesion type, unspecified whether angina present, unspecified whether upper sioux or transplanted heart documented in this encounter Results * ECG 12 lead (03/29/2024 3:31 PM EST) Ventricular Rate ECG 96 BPM GEMUSE Atrial Rate 96 BPM GEMUSE P-R Interval 160 ms GEMUSE QRS Duration 104 ms GEMUSE Q-T Interval 352 ms GEMUSE QTc 444 ms GEMUSE P Wave [place] 56 degrees GEMUSE R [place] 72 degrees GEMUSE ECG Interpretation Normal sinus rhythm Nonspecific T wave abnormality When compared with ECG of 11-JAN-2024 10:23, Nonspecific T wave abnormality, worse in Inferior leads Confirmed by SARAH SIMMONS ([id number]) on 03/31/2024 3:47:40 PM GEMUSE 03/29/2024 2:28 PM EST 03/31/2024 3:47 PM EST Joselyn Freeman MEEK ECG ORDERABLES GEMUSE documented in this encounter Visit Diagnoses Diagnosis Coronary artery disease, unspecified vessel or lesion type, unspecified whether angina present, unspecified whether upper sioux or transplanted heart- Primary Primary hypertension Unspecified essential hypertension Pure hypercholesterolemia documented in this encounter Discontinued Medications Medication Sig Discontinue Reason Start Date End Da te amLODIPine (NORVASC) 2.5 mg tablet Take 1 Tablet by mouth daily. Discontinued by another clinician 03/29/2024 amLODIPine (NORVASC) 5 mg tablet Take 1 Tablet by mouth daily. Discontinued by another clinician 03/29/2024 evolocumab (Repatha Syringe) 140 mg/mL syringe Inject 140 mg into the skin every 14 days. Discontinued by another clinician 02/20/2023 03/29/2024 fish,bora,flax oils-om3,6,9no1 (Viborg 3-6-9) 1,200 mg capsule Take 1 Capsule by mouth daily. Discontinued by another clinician 11/25/2021 03/29/2024 isosorbide mononitrate (IMDUR) 30 mg 24 hr tablet Take 1 Tablet by mouth daily. Discontinued by another clinician 03/29/2024 ticagrelor (BRILINTA) 90 mg tablet Take by mouth. Discontinued by another clinician 03/29/2024 amLODIPine (NORVASC) 2.5 mg tablet Take 1 Tablet by mouth daily. Discontinued by another clinician 03/29/2024 amLODIPine (NORVASC) 5 mg tablet Take 1 Tablet by mouth daily. Discontinued by another clinician 03/29/2024 evolocumab (Repatha Syringe) 140 mg/mL syringe Inject 140 mg into the skin every 14 days. Discontinued by another clinician 02/20/2023 03/29/2024 fish,bora,flax oils-om3,6,9no1 (Viborg 3-6-9) 1,200 mg capsule Take 1 Capsule by mouth daily. Discontinued by another clinician 11/25/2021 03/29/2024 isosorbide mononitrate (IMDUR) 30 mg 24 hr tablet Take 1 Tablet by mouth daily. Discontinued by another clinician 03/29/2024 ticagrelor (BRILINTA) 90 mg tablet Take by mouth. Discontinued by another clinician 03/29/2024 documented as of this encounter Historical Medications * This list may reflect changes made after this encounter. Medication Sig Dispensed Refills Start Date End Date dulaglutide (Trulicity) 0.75 mg/0.5 mL pen injector injection Inject 0.5 mL (0.75 mg total) under the skin every 7 (seven) days. amLODIPine (NORVASC) 10 mg tablet Take 1 tablet (10 mg total) by mouth 1 (one) time each day. clopidogreL (PLAVIX) 75 mg tablet Take 1 tablet (75 mg total) by mouth 1 (one) time each day. added in this encounter Care Teams Crew Boss Relationship Specialty Start Date End Date Sydnee Vale MD [address] [place] [phone] PCP - General 06/08/23 documented as of this encounter
--- OUTSIDE RECORDS SUMMARY | 2024-04-06 10:59 | XMS_ITS | Clinical Summary ---
Author Organization [address] [place] [address] [place] [phone] Phone Care Team Providers Care Engraver Set Up Operator Name Role Phone Sydnee Vale MD Primary Care Provider [phone] Allergies Active Allergy Reactions Criticality Noted Date Comments Fish Oil (Anchovy, Sardine) 03/29/19 25 Medications Medication Sig Dispensed Refills Start Date End Date Status aspirin 81 mg chewable tablet Take 81 mg by mouth daily. Active carvediloL (COREG) 25 mg tablet Take 1 Tablet by mouth 2 times daily (with meals). Active glipiZIDE (GLUCOTROL) 10 mg tablet Take 1 tablet (10 mg total) by mouth 1 (one) time each day. Active metFORMIN (GLUCOPHAGE) 500 mg tablet Take 500 mg by mouth 2 times daily (with meals). Active nitroglycerin (NITROSTAT) 0.[address] 1 Tablet under the tongue every 5 minutes as needed for Chest pain. 02/20/2023 Active rosuvastatin (CRESTOR) 40 mg tablet Take 40 mg by mouth daily. Active clopidogreL (PLAVIX) 75 mg tablet Take 1 tablet (75 mg total) by mouth 1 (one) time each day. Active amLODIPine (NORVASC) 10 mg tablet Take 1 tablet (10 mg total) by mouth 1 (one) time each day. Active dulaglutide (Trulicity) 0.75 mg/0.5 mL pen injector injection Inject 0.5 mL (0.75 mg total) under the skin every 7 (seven) days. Active fish,bora,flax oils-om3,6,9no1 (Chama 3-6-9) 1,200 mg capsule Take 1 Capsule by mouth daily. 11/25/2021 03/29/2024 Discontinued( Discontinued by another clinician) amLODIPine (NORVASC) 2.5 mg tablet Take 1 Tablet by mouth daily. 03/29/2024 Discontinued( Discontinued by another clinician) amLODIPine (NORVASC) 5 mg tablet Take 1 Tablet by mouth daily. 03/29/2024 Discontinued( Discontinued by another clinician) evolocumab (Repatha Syringe) 140 mg/mL syringe Inject 140 mg into the skin every 14 days. 02/20/2023 03/29/2024 Discontinued( Discontinued by another clinician) isosorbide mononitrate (IMDUR) 30 mg 24 hr tablet Take 1 Tablet by mouth daily. 03/29/2024 Discontinued( Discontinued by another clinician) ticagrelor (BRILINTA) 90 mg tablet Take by mouth. 03/29/2024 Discontinu ed( Discontinued by another clinician) Active Problems Problem Noted Date Diagnosed Date HLD (hyperlipidemia) 11/25/2021 Assessment & Plan (03/29/2024 3:30 PM EST): The patient's LDL during his hospitalization for [...] requiring CABG. Diabetes management is also paramount. Hypertension 05/28/2021 Assessment & Plan (03/29/2024 3:30 PM EST): The patient's blood pressure is well-controlled in office today. Continue beta-helen and calcium channel helen. Certainly increased exercise and weight loss will help with his blood pressure control as well. CAD (coronary artery disease) 06/04/2020 Overview (03/29/2024): NSTEMI with JEANNIE to mid RCA 02/2019 Four-vessel CABG 01/[address] Jordan with VELAZQUEZ to the LAD, SVG to the PDA, sequential SVG to the PLV and OM 2 Assessment & Plan (03/29/2024 3:30 PM EST): The patient denies any anginal sounding chest discomfort following multivessel CABG 2 months ago. His chest soreness is improving. He does not have any sternal instability on examination today. He has been taking his medications as directed including aspirin, Plavix, beta-helen, statin and calcium channel helen. Resolved Problems Problem Noted Date Diagnosed Date Resolved Date ACS (acute coronary syndrome) 02/18/2023 03/29/2024 Stable angina 02/18/2023 03/29/2024 Encounters Date Type Department Care Team Description 03/29/2024 2:10 PM EST Office Visit [facility] Cardiology [facility] [address] [facility] [address] [place] [phone] Joselyn Freeman NP Coronary artery disease, unspecified vessel or lesion type, unspecified whether angina present, unspecified whether hoonah or transplanted heart (Primary Dx); Primary hypertension; Pure hypercholesterolemia 01/26/2024 Telephone [facility] Cardiology [facility] [address] [facility] [address] [place] [phone] Monica John MD Hospital Follow-up ([facility] ) 01/11/2024 2:37 PM EDT - 01/12/2024 5:13 PM EDT Emergency [facility] Emergency [address] [place] [phone] Jerson Dash MD Bukalo, Nermina, MD Discharge Disposition: Another Health Care Institution Not Defined from Last 3 Months Immunizations Name Administration Dates Next Due Pfizer SARS-CoV-2 COVID-19, mRNA, LNP-S, preservative free 08/09/2020,07/19/2020 Surgical History Surgery Date Site/Laterality Comments CORONARY ARTERY BYPASS GRAFT Medical History Medical History Date Comments Diabetes (CMS/HCC) DX:Diabetes ( HCC) Social History Tobacco Use Types Packs/Day Years [...] file Not on file Not on file Obstetrics History Last Filed Vital Signs Vital Sign Reading [...] Mass Index 34.7 03/29/2024 2:19 PM EST Plan of Treatment Health Maintenance Due Date Last Done Comments Diabetes: Annual Foot Exam 05/25/1989 Diabetes: Annual Retina Eye Exam 05/25/1989 Hepatitis A Vaccines (1 of 2 - Risk 2-dose series) 05/25/1998 Hepatitis B Vaccines (1 of 3 - 19+ 3-dose series) 05/25/1998 HIV Screening 02/15/2022 Hepatitis C Screening 02/15/2022 Social Influencers of Health Screening 02/15/2022 Diabetes: Annual GFR (Glomerular Filtration Rate) 05/28/2022 05/28/2021 Hypertension/CHF/CAD Annual BMP Blood Test 05/28/2022 05/28/2021 COVID-19 Vaccine (2023-2 5 season) 2023 03/12/2021, 08/09/2020, 07/19/2020 Diabetes: Annual Urine Albumin-Creatinine Ratio (uACR) 03/30/2024 Diabetes: Blood Sugar Contro l Test (HGBA1C) 09/14/2024 03/17/2024, 01/04/2024 Depression Screening 03/17/2025 03/17/2024 Cholesterol Screening (Lipid Panel) 11/25/2026 11/25/2021 DTaP,Tdap,and Td Vaccines (3 - Td or Tdap) 03/09/2032 03/09/2022, 10/10/2018 Influenza Vaccine Completed 01/04/2024, 02/23/2019, 02/23/2019 Pneumococcal Vaccine: Pediatrics (0 to 5 Years) and At-Risk Patients (6 to 64 Years) Aged Out 01/04/2024 No longer eligible b ased on patient's age to complete this topic HIB Vaccines Aged Out No longer eligi ble based on patient's age to complete this topic HPV Vaccines Aged Out No longer eligi ble based on patient's age to complete this topic IPV Vaccines Aged Out No longer eligi ble based on patient's age to complete this topic MMR Vaccines Aged Out No longer eligi ble based on patient's age to complete this topic Meningococcal ACWY Vaccine Aged Out N o longer eligible based on patient's age to complete this topic RSV Immunization Patients Under 20 months Aged Out No longer eligible b ased on patient's age to complete this topic Varicella Vaccines Aged Out No longer eligible based on patient's age to complete this topic Procedures Procedure Name Priority Date/Time Associated Diagnosis Comments ECG 12-LEAD Routine 03/29/2024 3:31 PM EST Coronary artery disease, unspecified vessel or lesion type, unspecified whether angina present, unspecified whether hoonah or transplanted heart EXTERNAL ECHO Routine 01/18/2024 9:19 AM EST STRESS TEST NUCLEAR Routine 01/15/2024 9 :13 AM EDT NM MYOCARD PERF SPECT MULTI Routine 01/12/2024 2:12 PM EDT ELECTROCARDIOGRAM Routine 01/11/2024 3:[address] STRAUSS ROUTINE 2 VIEWS Routine 024 12:27 PM EDT ECG 01/11/2024 ECG 01/11/2024 CARDIOLOGY REPORT 01/11/2024 LIPID PANEL Routine 11/25/2021 ANNUAL BMP BLOOD TEST Routine 05/28/2021 from Last 3 Months or Most Recently Relevant to Health Maintenance Results * ECG 12 lead (03/29/2024 3:31 PM EST) Ventricular Rate ECG 96 BPM GEMUSE Atrial Rate 96 BPM GEMUSE P-R Interval 160 ms GEMUSE QRS Duration 104 ms GEMUSE Q-T Interval 352 ms GEMUSE QTc 444 ms GEMUSE P Wave Dimmitt 56 degrees GEMUSE R Dimmitt 72 degrees GEMUSE ECG Interpretation Normal sinus rhythm Nonspecific T wave abnormality When compared with ECG of 11-JAN-2024 10:23, Nonspecific T wave abnormality, worse in Inferior leads Confirmed by SARAH SIMMONS ([id number]) on 03/31/2024 3:47:40 PM GEMUSE 03/29/2024 2:28 PM EST 03/31/2024 3:47 PM EST Joselyn Freeman NP ECG ORDERABLES GEMUSE * External Echo (01/18/2024 9:19 AM EST) Anatomical Region Laterality Modality Ultrasound Historical Provider CV ECHO PROCEDURE S * Stress Test Nuclear (01/15/2024 9:13 AM EDT) Anatomical Region Laterality Modality Other 01/12/2024 8:39 AM EDT Narrative 01/15/2024 9:13 AM EDT [facility] Cardiology Department [address] [place] [address] ?? [id number] Cardiology Patient: ?? SALAZAR SWAN Unit #: ?? [id number] Location: ?? [facility] ?? 101-13 Status: ?? ADM Robb Date Of : ?? 1980 ?? 43 ?? M Ordering Physician: ?? MONICA JOHN MD, PHD Order Date/Time: ??01/12/24 0839 Performed Date/Time: ??01/12/24 1055 Stress Test Nuclear Acquisition Time: 2024-01-12 ??10:55:32 Total Exercise Time: 00:06:07 Test Indications: Chest Discomfort Medications: Protocol: ? LUIS Max HR: 111 BPM ??63% of ??Pred: 176 BPM Max BP: 150/090 mmHG Max Work Load: 7.0 METS Confirmed by Polo JOHN YUFENG ([id number]) on 01/15/2024 9:12:41 AM Referred By: MONICA JOHN M.D. ? Confirmed By:MONICA JOHN M.D. Dictating Provider: ??MONICA JOHN MD, PHD Transcribed by: ?? YZ Transcribed Date: Procedure Note Monica John MD - 01/16/2024 [facility] Cardiology Department [address] [place] [address] Cardiology Patient: SALAZAR SWAN Unit #: [id number] Location: [facility] 101-13 Status: ADM Robb Date Of : 1980 43 M Ordering Physician: MONICA JOHN MD, PHD Order Date/Time: 01/12/24838 Performed Date/Time: 01/12/24 1055 Stress Test Nuclear Acquisition Time: 2024-01-12 10:55:32 Total Exercise Time: 00:06:07 Test Indications: Chest Discomfort Medications: Protocol: LUIS Max HR: 111 BPM 63% of Pred: 176 BPM Max BP: 150/090 mmHG Max Work Load: 7.0 METS Confirmed by Polo JOHN, MONICA ([id number]) on 01/15/2024 9:12:41 AM Referred By: MONICA JOHN M.D. Confirmed By:MONICA JOHN M.D. Dictating Provider: MONICA JOHN MD, PHD Transcribed by: ESTELLA Transcribed Date: Monica John MD CV HISTORICAL CONV P ROCEDURES * NM MYOCARD PERF SPECT MULTI (01/12/2024 2:12 PM EDT) Anatomical Region Laterality Modality Nuclear Medicine 01/12/2024 10:3 9 AM EDT Narrative 01/12/2024 2:12 PM EDT [facility] Diagnostic Imaging Department [address] [place] [address] Patient: ??SALAZAR SWAN ?/Age/Sex: 1980 - 43 - M Unit#: ??[id number] ? Location/Status: ??SP1ERH/ADM Robb ? Mnemonic/Ordering Site: ??MYOSPMULT/SPNM Ordering Physician: ??JACEK BRASHER MD NM Myocard Perf Spect Multi - 01/12/24 - Report Status:Signed Date of exam: 01/12/2024 Date of :1980 ?Gender: Male Ordering provider: MONICA JOHN Patient height: 167.64 cm Patient weight: 96.62 kg Patient BMI: 34.4 kg/m2 Cardiac SPECT Stress Test TEST TYPE: Exercise Stress Test with SPECT imaging INDICATION/HISTORY: 43 yo male with CAD and prior stents admitted with chest pain. Normal troponins. CARDIAC RISK FACTORS: Diabetes, HTN, HPL and known CAD PRIOR CARDIAC EVENTS: CAD TECHNIQUE: One minute prior to the cessation of treadmill exercise on a Standard Luis Protocol, patient received 9.8 mCi of IV Tc 99m Tetrofosmin (Myoview) for stress SPECT imaging with gated SPECT acquisition at 30 min ??post exercise. Rest SPECT imaging with 27.1 mCi of IV.Tc 99m Tetrofosmin was performed. Computerized reconstruction of the images was performed for analysis. CT imaging was performed for attenuation correction purposes only STRESS TEST: The patient underwent a Exercise nuclear stress Stress test performed on beta blockers/calcium channel blockers/nitrates The patient exercised for 6 minutes and 07seconds into stage 2 of a Luis Protocol, achieving a peak heart rate of 111 BPM which is equal to 63 % of MPHR for the patient?s age. Resting BP: 110/80 with HR of: 88 bpm Peak Exercise BP: 150/80 with a HR of: 111.bpm Symptoms: Substernal chest pain rated 6/10 resolving by 3 min recovery. Hemodynamic response: Physiologic BP response; submax HR achieved due to CP Baseline ECG: NSR Stress ECG: No ischemic ECG changes at workload achieved. Arrhythmias: None Test terminated due to: Chest pain- test limiting SCAN FINDINGS: Nuclear imaging was felt to be adequate. The patients arms where in the upper position. Nuclear imaging of the left ventricle reveals normal cavity size at stress, no change with rest imaging. Myocardial perfusion imaging of the left ventricle reveals a small in size, mild intensity reversible perfusion defect in the mid to apical inferior wall, consistent with ischemia. ??There is no obvious fixed perfusion defect to suggest infarct. CT attenuation correction was applied to the study which did not correct the previously mentioned perfusion abnormality. Gated SPECT imaging was performed which demonstrated normal LV function and thickening with a calculated LVEF of 53% at rest and 61% at stress. IMPRESSION: This is an abnormal exercise stress test with nuclear imaging.?The patient had chest pain at stage II of Luis protocol. Nuclear imaging revealed a small areas of ischemia at mid to apical inferior wall. ??There is no fixed defect to suggest infarct Gated SPECT imaging was performed which demonstrated normal LV function and thickening with a calculated LVEF of 53% at rest and 61% at stress. Dictating Physician: ??MONICA JOHN MD, PHD Electronically Signed by: ??MONICA JOHN MD, PHD Dic Date/Time: ??01/12/24 1248 Sign date/Time: ??01/12/24 1412 Procedure Note Monica John MD - 01/16/2024 [facility] Diagnostic Imaging Department [address] [place] [address] Patient: SALAZAR SWANO.B./Age/Sex: 1980 - 43 - M Unit#: [id number] Location/Status: SP1ERH/ADM Robb Mnemonic/Ordering Site: MYOSPMULT/SPNM Ordering Physician: JACEK BRAHSER MD NM Myocard Perf Spect Multi - 01/12/24 - Report Status:Signed Date of exam: 01/12/2024 Date of :1980 Gender: Male Ordering provider: MONICA JOHN Patient height: 167.64 cm Patient weight: 96.62 kg Patient BMI: 34.4 kg/m2 Cardiac SPECT Stress Test TEST TYPE: Exercise Stress Test with SPECT imaging INDICATION/HISTORY: 43 yo male with CAD and prior stents admitted with chest pain. Normal troponins. CARDIAC RISK FACTORS: Diabetes, HTN, HPL and known CAD PRIOR CARDIAC EVENTS: CAD TECHNIQUE: One minute prior to the cessation of treadmill exercise on a StandardBruce Protocol, patient received 9.8 mCi of IV Tc 99m Tetrofosmin (One[employer] Water) forstress SPECT imaging with gated SPECT acquisition at 30 min post exercise. RestSPECT imaging with 27.1 mCi of IV.Tc 99m Tetrofosmin was performed. Computerized reconstruction of the images was performed for analysis. CT imaging was performed for attenuation correction purposes only STRESS TEST: The patient underwent a Exercise nuclear stress Stress test performed on beta blockers/calcium channel blockers/nitrates The patient exercised for 6 minutes and 07seconds into stage 2 of aBruce Protocol, achieving a peak heart rate of 111 BPM which is equal to 63 % ofMPHR for the patient?s age. Resting BP: 110/80 with HR of: 88 bpm Peak Exercise BP: 150/80 with a HRof: 111.bpm Symptoms: Substernal chest pain rated 6/10 resolving by 3 min recovery. Hemodynamic response: Physiologic BP response; submax HR achieved due toCP Baseline ECG: NSR Stress ECG: No ischemic ECG changes at workload achieved. Arrhythmias: None Test terminated due to: Chest pain- test limiting SCAN FINDINGS: Nuclear imaging was felt to be adequate. The patients arms where in theupper position. Nuclear imaging of the left ventricle reveals normal cavity size atstress, no change with rest imaging. Myocardial perfusion imaging of the left ventricle reveals a small insize, mild intensity reversible perfusion defect in the mid to apical inferiorwall, consistent with ischemia. There is no obvious fixed perfusion defect tosuggest infarct. CT attenuation correction was applied to the study which did not correctthe previously mentioned perfusion abnormality. Gated SPECT imaging was performed which demonstrated normal LV functionand thickening with a calculated LVEF of 53% at rest and 61% at stress. IMPRESSION: This is an abnormal exercise stress test with nuclear imaging.?The patienthad chest pain at stage II of Luis protocol. Nuclear imaging revealed a small areas of ischemia at mid to apicalinferior wall. There is no fixed defect to suggest infarct Gated SPECT imaging was performed which demonstrated normal LV functionand thickening with a calculated LVEF of 53% at rest and 61% at stress. Dictating Physician: MONICA JOHN MD, PHD Electronically Signed by: MONICA JOHN MD, PHD Dic Date/Time: 01/12/24 1248 Sign date/Time: 01/12/24 1412 Jacek Brasher MD [facility] NM PROCEDURES * Electrocardiogram (01/11/2024 3:30 PM EDT) 01/11/2024 10:3 2 AM EDT Narrative CV HISTORICAL RESULTS - 01/11/2024 3:30 PM EDT [facility] Cardiology Department [address] [place] [address] ?? [address] Cardiology Patient: ?? SWAN,SALAZAR Jose Unit #: ?? [id number] Location: ?? [facility] ?? 101-13 Status: ?? ADM Robb Date Of : ?? 1980 ?? 43 ?? M Ordering Physician: ?? ER,DOC Order Date/Time: ??01/11/24 1032 Performed Date/Time: ??01/11/24 1023 Electrocardiogram Test Reason : CP Blood Pressure : / mmHG Vent. Rate : 073 BPM ? Atrial Rate : 073 BPM P-R Int : 166 ms ?QRS Dur : 102 ms QT Int : 386 ms ? P-R-T Axes : 046 039 009 degrees QTc Int : 425 ms Normal sinus rhythm Normal ECG When compared with ECG of 14-JAN-2023 17:14, Nonspecific T wave abnormality no longer evident in Lateral leads Confirmed by Polo MACHADO JOHN ([id number]) on 01/11/2024 3:30:04 PM Referred By: ??ERDOC ? Confirmed By:GRACIELA MACHADO M.D. Dictating Provider: ??GRACIELA MACHADO MD Transcribed by: ?? JM Transcribed Date: Procedure Note Graciela Machado MD - 01/16/2024 [facility] Cardiology Department [address] [place] [address] Cardiology Patient: SALAZAR SWAN Unit #: [id number] Location: [address] Status: ADM Robb Date Of : 1980 43 M Ordering Physician: MELVINA ALEXANDER Order Date/Time: 01/11/24 1032 Performed Date/Time: 01/11/24 1023 Electrocardiogram Test Reason : CP Blood Pressure : / mmHG Vent. Rate : 073 BPM Atrial Rate : 073 BPM P-R Int : 166 ms QRS Dur : 102 ms QT Int : 386 ms P-R-T Axes : 046 039 009 degrees QTc Int : 425 ms Normal sinus rhythm Normal ECG When compared with ECG of 14-JAN-2023 17:14, Nonspecific T wave abnormality no longer evident in Lateral leads Confirmed by Polo MACHADO JOHN ([id number]) on 01/11/2024 3:30:04 PM Referred By: VIKTOR Confirmed By:GRACIELA MACHADO M.D. Dictating Provider: GRACIELA MACHADO MD Transcribed by: JAYME Transcribed Date: Cardiovascular Results Historical CV HISTORICAL CONV PROCEDURES CV HISTORICAL RESULTS * CHEST ROUTINE 2 VIEWS (01/11/2024 12:27 PM EDT) Anatomical Region Laterality Modality Radiographic Rashmi ging 01/11/2024 10:3 2 AM EDT Narrative 01/11/2024 12:27 PM EDT [facility] Diagnostic Imaging Department [address] [place] [address] Patient: ??SALAZAR SWAN ?/Age/Sex: 1980 - 43 - M Unit#: ??[id number] ? Location/Status: ??SPER/REG ER ? Mnemonic/Ordering Site: ??CHESTXR/SPMAIN Ordering Physician: ??ER,DOC DR Chest Routine 2 Views - 01/11/241221 Report Status:Signed PA and lateral views of the chest dated 01/11/2024. HISTORY: Pain. ??Fatigue. COMPARISON: 01/14/2023. FINDINGS: Mildly hypoventilatory inspiratory volumes. ??Mild atelectasis at the bases. Cardiomediastinal contours are normal. ??No pulmonary edema, pleural effusion, or pneumothorax. ??No acute bony findings. IMPRESSION: No acute findings. Dictating Physician: ??SABRA WILSON MD Electronically Signed by: ??SABRA WILSON MD Dic Date/Time: ??01/11/241225 Sign date/Time: ??01/11/241226 Procedure Note Sabra Wilson MD - 01/16/2024 [facility] Diagnostic Imaging Department [address] [place] [address] Patient: SALAZAR SWAN D.O.B./Age/Sex: 1980 - 43 - M Unit#: [id number] Location/Status: SPER/REG ER Mnemonic/Ordering Site: CHESTXR/SPMAIN Ordering Physician: ER,DOC Chest Routine 2 Views - 01/11/241221 Report Status:Signed PA and lateral views of the chest dated 01/11/2024. HISTORY: Pain. Fatigue. COMPARISON: 01/14/2023. FINDINGS: Mildly hypoventilatory inspiratory volumes. Mild atelectasis at thebases. Cardiomediastinal contours are normal. No pulmonary edema, pleuraleffusion, or pneumothorax. No acute bony findings. IMPRESSION: No acute findings. Dictating Physician: SABRA WILSON MD Electronically Signed by: SABRA WILSON MD Dic Date/Time: 01/11/24 1226 Sign date/Time: 01/11/24 1227 Radiology Results Historical MD IMG XR P ROCEDURES * Cardiology Report (01/11/2024) Anatomical Region Laterality Modality Other Provider Onbase CV HISTORICAL CONV P ROCEDURES * ECG (01/11/2024) Only the most recent of2 resultswithin the time period is included. Provider Onbase CV HISTORICAL CONV P ROCEDURES * (ABNORMAL) Lipid panel (11/25/2021) Pathologist [facility] LDL/HDL Ratio 7(A) 0 - 4 Triglycerides 535(A) 0 - 150 mg/dL Cholesterol 249(A) 0 - 200 mg/dL HDL 35(A) 40 mg/dL Blood Venous blood specimen / Unknown Historical Provider LAB BLOOD ORDERAB LES * Annual BMP Blood Test (05/28/2021) Pathologist [facility] Annual BMP Blood Test Abstracted Historical Provider HEALTH MAINTENANC E from Last 3 Months or Most Recently Relevant to Health Maintenance Care Teams Engraver Set Up Operator Relationship Specialty Start Date End Date Sydnee Vale MD [address] [place] [phone] PCP - General 06/08/23
[2024-04-06 12:25] LABS: Alanine Aminotransferase 16 U/L (0-40); Albumin Level 4.2 g/dL (3.5-5.0); Alkaline Phosphatase 98 U/L (39-117); Anion Gap 9 (12-20); Aspartate Amino Transferase 17 U/L (5-37); Bilirubin Total 0.4 mg/dL (0.0-1.0); Blood Urea Nitrogen 12 mg/dL (9-16); Calcium 9.7 mg/dL (8.4-10.2); Carbon Dioxide 27 mmol/L (22-29); Chloride 105 mmol/L (96-108); Cholesterol 151 mg/dL (<200); Estimated Glomerular Filt Rate > 60; Glucose Random 172 mg/dL (60-115); HDL Cholesterol 44 mg/dL (>40); LDL Cholesterol Calculated 76 mg/dL (<100); Potassium 4.2 mmol/L (3.3-5.1); Sodium 137 mmol/L (135-145); Total Protein 7.7 g/dL (6.5-8.0); Triglycerides 155 mg/dL (<150)
[2024-04-06 12:41] LABS: Creatinine Urine 151.83 mg/dL; Microalbum/Creatinine Ratio Ur 45.4 ug/mg cr (<30)
[2024-04-10 14:48] LABS: Testosterone, Free 88.7 pg/mL (35.0-155.0); Testosterone, Total 331 ng/dL (250-1100)
== END 2024-04-06 10:02 | disposition home or self-care (01) ==
LOC: HO.HHCL 10:01
PROVIDERS: Visit Provider Internal Medicine
DX: R05.1 Acute cough (principal); I10 Essential (primary) hypertension; E78.2 Mixed hyperlipidemia; E11.9 Type 2 diabetes mellitus without complications; N52.9 Male erectile dysfunction, unspecified
CPT/HCPCS: 36415; 71046; 80053; 80061; 82043; 82570; 84402; 84403

== ENCOUNTER → 2024-04-06 10:18 | Outpatient (BNV) | payer MEDICAID, SELFPAY | PROVIDERS: Visit Provider Radiology Diagnostic Radiology | DX: R05.9 Cough, unspecified (principal) | CPT/HCPCS: 71046 ==

== ENCOUNTER 2024-10-04 10:56 | Outpatient (AMB) | payer MEDICAID, SELFPAY ==
--- NOTE | 2024-10-04 11:04 | MHC.OFFVIS ---
Intake Visit Reasons: erectile dysfunction Intake Note: Patient presents today for erectile dysfunction Urology Medication:None Blood Thinner:Aspirin Antibiotic Allergies:None Allergies No Known Allergies Allergy (Verified 10/04/24 11:43) Medication List - Last Reconciled 10/04/24 by GENNA Oates- amlodipine 5 mg PO BEDTIME aspirin 81 mg PO QAM blood sugar diagnostic (FreeStyle Lite Strips) As directed carvedilol 25 mg PO dulaglutide (Trulicity) mg subcut QWEEK glipizide ER 10 mg PO isosorbide mononitrate ER 30 mg PO DAILY lancets (TRUEplus Lancets) As directed metformin ER 1,000 mg PO nitroglycerin mg sublingual rosuvastatin 40 mg PO BEDTIME tadalafil (Cialis) 5 mg PO DAILY 90 days ticagrelor (Brilinta) 90 mg PO BID HPI Comments Details: Salazar is a very pleasant 44-year-old male patient of Dr. Garcia. He has a past medical history of hyperlipidemia, coronary artery disease, hypertension, and diabetes. He presents to the office today for follow-up of his erectile dysfunction. Of note, patient was seen approximately 18 months ago at which time he was prescribed low-dose Cialis and labs were ordered for further assessment evaluation. In discussion with the patient today he reports feeling low-dose Cialis as well as lifestyle modifications that were discussed were helpful in maintaining his erections however is enquiring refill. We did discussed importance of following up as planned. He reports noting symptoms of ED started approximately 5-7 years ago. When asked he does report being able to obtain erections however finds maintaining and at times obtaining erections to be difficult. Discussed at length potential causes for erectile dysfunction. Discussed and stressed the importance of managing diabetes for improvement in ED. When asked he denies any signs or symptoms of sleep apnea. When asked he denies any bothersome urinary issues. He denies urinary urgency, urinary frequency, incontinence, nocturia, hematuria, dysuria, foul smelling urine, changes to urinary stream, flank pain, fever, and or chills. He is happy with his current voiding parameters. In office urinalysis results reviewed with the patient today. Discussed further erectile dysfunction workup with labs. In review of patient's chart it appears labs are as follows: Testosterone: 04/09 331 Free testosterone: 04/09 88.7 PFSH Medical History Hx of chest pain Hx of hyperlipidemia Hx of coronary artery disease Hx of essential hypertension Hx of diabetes mellitus Surgical History History of coronary artery stent placement Family History Father No problems noted. Mother No problems noted. Social History Alcohol intake: current Alcohol intake frequency: holidays/special occasions only Patient Tobacco Use Status: Former Tobacco user Review of Systems Const Reports no additional complaints Eyes Reports no additional complaints ENT Reports no additional complaints Card Reports as per HPI Resp Reports no additional complaints GI Reports no additional complaints Reports as per HPI Musc Reports no additional complaints Neuro Reports no additional complaints Psych Reports no additional complaints Endo Reports as per HPI Yosef/Lymph Reports no additional complaints Aller/Immun Reports no additional complaints Physical Exam Const General: cooperative, healthy appearing, comfortable, no acute distress, well developed, alert and awake Orientation/consciousness: patient oriented x3 Limitations: no limitations HEENT Head: Yes normal to inspection, Yes normocephalic and Yes atraumatic Ears: hearing grossly normal bilaterally Eyes General: appearance normal, both eyes and all related structures Neck Neck: Yes normal visual inspection and Yes trachea midline Chest Chest palpation & inspection: normal inspection of the chest Resp Effort & Inspection: normal respiratory effort and able to speak in complete sentences Cardio Rate: regular rate GI Inspection: Yes normal to inspection General: Yes no CVA tenderness Back/Spine/Pelvis Back: no CVA tenderness Skin General skin exam: no rashes or lesions noted Neuro General: patient oriented x3 Extrem General: Yes normal to inspection Psych Appearance: grossly normal and well kempt Mental Status: mental status grossly normal Speech and movement: Normal speech and movement present and Clear speech present Affect: normal affect Attitude: cooperative Thought process: Normal thought process present Thought content: Normal thought content present Insight: Fair insight present (Psych) Judgement: Fair judgement present (Psych) Assessment & Plan Assessment & Plan (1) Low libido: Code(s): R68.82 - Decreased libido Category: Medical (2) Erectile dysfunction associated with type 2 diabetes mellitus: Code(s): E11.69 - Type 2 diabetes mellitus with other specified complication; N52.1 - Erectile dysfunction due to diseases classified elsewhere Category: Medical Plan In office urinalysis results reviewed with the patient today; as noted above. Will obtain LH, prolactin, FSH, estradiol, hemoglobin A1c, SHBG, and testosterone free and total for further assessment evaluation. Discussed at length potential causes for erectile dysfunction patient is experiencing. Discussed at length importance of managing diabetes for improvement in ED as well as overall health and well-being. Re-Start Cialis 5 mg daily as discussed and prescribed. Discussed further treatment options for erectile dysfunction at length. Discussed calling commercial relief driver to discuss on demand dosing for Viagra or Cialis. Discussed lifestyle modifications to assist with erectile dysfunction. Follow up in 3-6 months with labs to be completed prior; or sooner with any issues, concerns, or issues. Orders: Orders Follicle Stimulating Hormone Today E11.69 - Type 2 diabetes mellitus with other specified complication, N52.1 - Erectile dysfunction due to diseases classified elsewhere, R68.82 - Decreased libido Hemoglobin A1c Today E11.69 - Type 2 diabetes mellitus with other specified complication, N52.1 - Erectile dysfunction due to diseases classified elsewhere, R68.82 - Decreased libido Testosterone, Free/Total Today E11.69 - Type 2 diabetes mellitus with other specified complication, N52.1 - Erectile dysfunction due to diseases classified elsewhere, R68.82 - Decreased libido Lutenizing Hormone Today E11.69 - Type 2 diabetes mellitus with other specified complication, N52.1 - Erectile dysfunction due to diseases classified elsewhere, R68.82 - Decreased libido Prolactin Today E11.69 - Type 2 diabetes mellitus with other specified complication, N52.1 - Erectile dysfunction due to diseases classified elsewhere, R68.82 - Decreased libido Prostate Specific Antigen Today E11.69 - Type 2 diabetes mellitus with other specified complication, N52.1 - Erectile dysfunction due to diseases classified elsewhere, R68.82 - Decreased libido Estradiol Ultra Sensitive Today E11.69 - Type 2 diabetes mellitus with other specified complication, N52.1 - Erectile dysfunction due to diseases classified elsewhere, R68.82 - Decreased libido Medications: Refilled tadalafil (Cialis) [id number] [facility] [place] [id number] Member [id number] 5 mg PO DAILY 90 tabs 1RF 90 days E11.69 - Type 2 diabetes mellitus with other specified complication, N52.1 - Erectile dysfunction due to diseases classified elsewhere Patient Instructions: The patient had an opportunity to ask questions regarding the treatment plan. All questions were answered. Physical exam, labs, and imaging were discussed and reviewed in detail. As well as risks, benefits, and discussion of treatment choices. No major barriers to understanding were identified. The patient expressed understanding and agreement with the above treatment plan. The patient was made aware they should contact our office by phone for worsening of their current condition, the appearance of new symptoms, or with any questions or concerns. Compliance is encouraged with any medications and follow up testing that is ordered. It is a privilege to be allowed the opportunity to participate in? your urological care.? Again, if you have any questions or concerns If you have any questions or concerns please do not hesitate to contact me. The office is [phone]. This note is constructed using voice recognition software. While every effort has been made to ensure accuracy editorial specialist errors may have been included. Yours sincerely, CARROL Oates Coding Level of Care Code Est Pt Level 4 (12810) Diagnoses Low libido R68.82 Erectile dysfunction associated with type 2 diabetes mellitus E11.69; N52.1
--- OUTSIDE RECORDS SUMMARY | 2024-10-04 12:12 | XMS_ITS | Encounter Summary ---
Author Organization [employer] Address [address] [place] [address] Care Team Providers Care Machine Feller Name Role Phone Prasad Menezes MD Primary Care Provide r Encounter Details Date Type Department Care Team (Late st Contact Info) Description 04/23/2023 Abstract [facility] [address] [place] [address] Marcos, Gia [address] [place] [address] Social History Tobacco Use Types Packs/Day Years Used Date Smoking Tobacco: Former Cigarettes 0.3 32.6 S tarted: 1992 Passive Smoke Exposure: Past [...] your housing situation today? I have estela aurora 01/22/[address] you li [...] Male 01/13/2022 10:35 AM EDT Sexual Orientation Straight 07/19/2024 8: 41 AM EDT documented as of this encounter Plan of Treatment Upcoming Encounters Date Type Department Care Team (Late st Contact Info) Description 10/14/2024 9:00 AM EDT Office Visit [facility] [address] [place] [phone] Jorje Rodríguezaris [address] [place] [address] 10/21/2024 9:00 AM EDT Office Visit [facility] [address] [place] [address] Marcos, Gia [address] [place] [address] 11/24/2024 9:15 AM EDT Office Visit [facility] [address] [place] [phone] Prasad Menezes MD [address] [place] [address] 03/20/2025 2:30 PM EST Medication Management [facility] [address] [place] [phone] Renetta Su, PharmD [address] [place] [address] documented as of this encounter Goals Goal Patient Goal Type Associated Problems Recent Progress Patient-Stated? Author Blood Pressure < 140/90 Blood Pressure 136/74(2024 9:00 AM EDT) No Mary Kate Paul PharmD Note: Check BP at home daily and record Eat less salt Diet No Mary Kate Paul PharmD Note: Decrease sodium/ salt consumption documented as of this encounter Visit Diagnoses Not on filedocumented in this encounter Additional Health Concerns Assessment Noted Time PHQ-9 Depression Total Score: 0 02/04/20 23 9:35 AM EST documented as of this encounter Care Teams Machine Feller Relationship Specialty Start Date End Date Prasad Menezes MD [address] [place] [id number] PCP - General Internal Medicine 10/12/18 documented as of this encounter
--- OUTSIDE RECORDS SUMMARY | 2024-10-04 12:12 | XMS_ITS | Clinical Summary ---
Author Organization [address] [place] [address] Address [address] [place] [address] Phone Care Team Providers Care Art Glass Setter Name Role Phone Prasad Garcia MD Primary Care [facility] Allergies Active Allergy Reactions Criticality Noted Date Comments Fish Oil (Anchovy, Sardine) 03/29/19 25 Medications aspirin 81 mg chewable tablet Take 81 [...] the skin every 7 (seven) days. Active evolocumab (Repatha SureClick) 140 mg/mL pen injector injection Inject 1 mL (140 mg total) under the skin every 14 (fourteen) days. 6 mL 3 09/08/2024 Active Active Problems Problem Noted Date Diagnosed Date Class 2 obesity 06/17/2023 Type 2 diabetes mellitus wit h both eyes affected by mild nonproliferative retinopathy without macular edema, without long-term current use of insulin ([facility] V24, [facility] V28) 02/21/2022 HLD (hyperlipidemia) 11/25/2021 Assessment & Plan (09/08/2024 1:09 PM EDT): Last lipid panel reviewed, LDL 76, triglycerides 155. Given his significant premature coronary artery disease and history of diabetes, goal LDL should be closer to 50. I have asked the patient to start Repatha. He will update a fasting lipid panel in 8 weeks. Continue with efforts to follow a low fat, heart healthy diet, increase exercise and maintain a healthy weight to maximize risk reduction. Assessment & Plan (03/29/2024 3:30 PM EST): [...] also paramount. Hypertension 05/28/2021 Assessment & Plan (09/08/2024 1:13 PM EDT): Blood pressure is under reasonable control at 124/88. No change to current medical therapy, continue amlodipine and carvedilol as prescribed. Assessment & Plan (03/29/2024 3:30 PM EST): [...] PLV and OM 2 Assessment & Plan (09/08/2024 1:13 PM EDT): History of significant premature coronary artery disease status post four-vessel CABG (VELAZQUEZ to the LAD, SVG to the PDA, sequential SVG to the PLV and OM2). He denies anginal symptoms. Continue aspirin, carvedilol, clopidogrel, rosuvastatin and add Repatha as prescribed. Echocardiogram ordered to reassess cardiac function and structures. For any chest pain/discomfort, especially if associated with exertion, that lasts longer than 10-15 minutes and does not resolve with rest or sublingual nitroglycerin, patient has been encouraged to seek immediate medical attention by calling 911. Assessment & Plan (03/29/2024 3:30 PM EST): [...] Diagnosed Date Resolved Date ACS (acute coronary syndrome ) ([facility] V24, [facility] V28) 02/18/2023 03/29/2024 Stable angina ([facility] V24) 02/18/2023 03/29/2024 Encounters Date Type Department Care Team Description 09/08/2024 12:40 PM EDT Office Visit [facility] [address] [place] [id number] Breanna Lopez, MEEK Coronary artery disease, unspecified vessel or lesion type, unspecified whether angina present, unspecified whether [place] or transplanted heart (Primary Dx); Primary hypertension; Hyperlipidemia, unspecified hyperlipidemia type from Last 3 Months Immunizations Name Administration Dates Next Due Pfizer SARS-CoV-2 COVID-19, mRNA, LNP-S, preservative free 08/09/2020,07/19/2020 Surgical History Surgery Date Site/Laterality Comments CORONARY ARTERY BYPASS GRAFT Medical History Medical History Date Comments Diabetes (CMS/HCC V24, CMS/HCC V28) DX:Diabetes (HCC) Social History Tobacco Use Types Packs/Day Years Used Date Smoking Tobacco: Former Cigarettes Smokeless Tobacco: Never Tobacco Cessation:Counseling Given: Not Answered Comments:Quit December 2023 Alcohol Use Standard Drinks/Week Comments Not Currently 0 (1 standard drink = 0.6 oz pur e alcohol) Sex and Gender Information Value Date Recorded Sex Assigned at Not on file Legal Sex Male 7:29 PM EST Gender Identity Not on file Sexual Orientation Not on file Obstetrics History Last Filed Vital Signs Vital Sign Reading Time Taken Comments Blood Pressure 124/88 09/08/2024 12:38 PM EDT Pulse 90 09/08/2024 12:38 PM EDT Temperature - - Respiratory Rate - - Oxygen Saturation 98% 09/08/2024 12:38 PM EDT Inhaled Oxygen Concentration - - Weight 98.9 kg (218 lb) 09/08/2024 12:38 PM EDT Height 167.6 cm (5' 6 ) 09/08/2024 12:38 PM EDT Body Mass Index 35.19 09/08/2024 12:38 PM EDT Plan of Treatment Upcoming Encounters Date Type Department Care Team (Late st Contact Info) Description 12/23/2024 10:30 AM EDT Ancillary Procedure [facility] [address] [facility] [address] [place] [address] Health Maintenance Due Date Last Done Comments Diabetes: Annual Foot Exam 05/25/1989 Diabetes: Annual Retina Eye Exam 05/25/1989 Hepatitis B Vaccines (1 of 3 - 19+ 3-dose series) 05/25/1998 Colorectal Cancer Screening: Colonoscopy 02/15/2022 HIV Screening 02/15/2022 Hepatitis C Screening 02/15/2022 Social Influencers of Health Screening 02/15/2022 Diabetes: Annual GFR (Glomerular Filtration Rate) 05/28/2022 05/28/2021 Hypertension/CHF/CAD Annual BMP Blood Test 05/28/2022 05/28/2021 COVID-19 Vaccine (4 - 2023-2 5 season) 2023 03/12/2021, 08/09/2020, 07/19/2020 Depression Screening 03/16/2024 Diabetes: Annual Urine Albumin-Creatinine Ratio (uACR) 03/30/2024 Diabetes: Blood Sugar Contro l Test (HGBA1C) 10/31/2024 05/03/2024, 03/17/2024, 01/04/2024 Influenza Vaccine (#1) 2024 , 02/23/2019, 02/23/2019 Cholesterol Screening (Lipid Panel) 04/06/2029 04/06/2024, 11/25/2021 DTaP,Tdap,and Td Vaccines (3 - Td or Tdap) 03/09/2032 03/09/2022, 10/10/2018 Pneumococcal Vaccine: Pediatrics (0 to 5 Years) and At-Risk Patients (6 to 49 Years) Completed 01/04/2024 HIB Vaccines Aged Out No longer eligi ble based on patient's age to complete this topic HPV Vaccines Aged Out No longer eligi ble based on patient's age to complete this topic Hepatitis A Vaccines Aged Out No long er eligible based on patient's age to complete this topic IPV Vaccines Aged Out No longer eligi ble based on patient's age to complete this topic MMR Vaccines Aged Out No longer eligi ble based on patient's age to complete this topic Meningococcal ACWY Vaccine Aged Out N o longer eligible based on patient's age to complete this topic Meningococcal B Vaccine Aged Out No l onger eligible based on patient's age to complete this topic RSV Immunization Patients Under 20 months Aged Out No longer eligible b ased on patient's age to complete this topic Varicella Vaccines Aged Out No longer eligible based on patient's age to complete this topic Procedures Procedure Name Priority Date/Time Associated Diagnosis Comments ECG 12-LEAD Routine 09/08/2024 1:14 PM EDT Coronary artery disease, unspecified vessel or lesion type, unspecified whether angina present, unspecified whether [place] or transplanted heart LIPID PANEL Routine 11/25/2021 HM ANNUAL BMP BLOOD TEST Routine 05/28/2021 from Last 3 Months or Most Recently Relevant to Health Maintenance Results * ECG 12 lead (09/08/2024 1:14 PM EDT) [facility] [address] Ventricular Rate ECG 90 BPM GEMUSE Atrial Rate 90 BPM GEMUSE P-R Interval 162 ms GEMUSE QRS Duration 100 ms GEMUSE Q-T Interval 354 ms GEMUSE QTc 433 ms GEMUSE P Wave [place] 41 degrees GEMUSE R [place] 56 degrees GEMUSE T [place] 23 degrees GEMUSE ECG Interpretation Normal sinus rhythm Normal ECG When compared with ECG of 29-MAR-2024 14:28, Nonspecific T wave abnormality , improved in Inferior leads Confirmed by Polo MUSTAFA YUFENG ([id number]) on 09/08/2024 4:22:12 PM GEMUSE 09/08/2024 12:4 0 PM EDT 09/08/2024 4:22 PM EDT Breanna Lopez NP ECG ORDERABLES Edited Result - Final GEMUSE * (ABNORMAL) Lipid panel (11/25/2021) [facility] [address] LDL/HDL Ratio 7(A) 0 - 4 Triglycerides 535(A) 0 - 150 mg/dL Cholesterol 249(A) 0 - 200 mg/dL HDL 35(A) >=40 mg/dL Blood Venous blood specimen / Unknown Historical Provider LAB BLOOD ORDERABLES Beronica l Result * Annual BMP Blood Test (05/28/2021) [facility] Annual BMP Blood Test Abstracted Historical Provider HEALTH MAINTENANCE Final Result from Last 3 Months or Most Recently Relevant to Health Maintenance Insurance MEDICAID - [place] Care Teams Art Glass Setter Relationship Specialty Start Date End Date Prasad Garcia MD [address] [place] [phone] PCP - General Internal Medicine 09/08/24
--- OUTSIDE RECORDS SUMMARY | 2024-10-04 12:12 | XMS_ITS | Clinical Summary ---
Author Organization [facility] Address [address] [place] [address] Care Team Providers Care Winding Operator Name Role Phone Unavailable Primary Care Provider Unavailabl e Source Comments PLEASE NOTE, if this patient is a minor, it may be UNLAWFUL to discuss sensitive information that is contained in these records (such as FAMILY PLANNING, MENTAL HEALTH or SUBSTANCE ABUSE) with the minor patient's parent or other person without the patient's specific authorization.[facility] Immunizations Immunization Administration Dates Next Due PFIZER COVID VACCINE, PURPLE CAP, 12+ 08/09/2020 ,07/19/2020 Social History Tobacco Use Types Packs/Day [...] Health Maintenance Due Date Last Done Comments Anxiety Screening 1979 Diabetes Screening 1979 Hepatitis C Screening 1979 Lipid Screening 1979 Tobacco Screening 1979 HIV Screening 05/25/1994 Hypertension Screening (#1) 05/25/1997 Imm-Hepatitis B (1 of 3 - 19 + 3-dose series) 05/25/1998 Lve-FWGUK-28 ( season) 2023 021, 07/19/2020 Alcohol and Drug Screen 03/16/2024 Depression Annual Screen 03/16/2024 CT Colonography 05/25/2024 Colonoscopy 05/25/2024 Colorectal Cancer Screening 05/25/2024 FIT/gFOBT 05/25/2024 Fecal DNA 05/25/2024 Flexible Sigmoidoscopy 05/25/2024 Imm-Influenza (Season Ended) 2024 02/23/2019 Imm-DTaP/Tdap/Td (2 - Td or Tdap) 10/10/[address]28 [address] [employer]
== END 2024-10-04 11:38 | disposition home or self-care (01) ==
LOC: HO.HUSH 10:57
PROVIDERS: PCP Internal Medicine; Visit Provider Nurse Practitioner Family
DX: R68.82 Decreased libido (principal); E11.69 Type 2 diabetes mellitus with other specified complication; N52.1 Erectile dysfunction due to diseases classified elsewhere; Z13.9 Encounter for screening, unspecified
CPT/HCPCS: 99214

== ENCOUNTER → 2024-10-04 10:56 | Outpatient (BNVA) | payer MEDICAID, SELFPAY | PROVIDERS: PCP Internal Medicine; Visit Provider Nurse Practitioner Family | DX: E11.69 Type 2 diabetes mellitus with other specified complication (principal); R68.82 Decreased libido; N52.1 Erectile dysfunction due to diseases classified elsewhere | CPT/HCPCS: 81003; 99212 ==

== ENCOUNTER 2024-12-16 09:42 | Outpatient (REF) | payer MEDICAID, SELFPAY ==
--- OUTSIDE RECORDS SUMMARY | 2024-12-16 10:16 | XMS_ITS | Encounter Summary ---
Author Organization [employer] Address [address] [place] [address] Care Team Providers Care Consulting Project Director Name Role Phone Prasad Menezes MD Primary Care Provide r Reason for Visit * Reason Onset Date Comments Hospital Follow-up 01/21/2023 Encounter Details Date Type Department Care Team ([facility] st Contact Info) Description 01/21/2023 Telephone [facility] [address] [place], [place] [phone] Prasad Menezes MD [address] [place], [place] [phone] Hospital Follow-up Social History Tobacco Use Types Packs/Day Years Used Date Smoking Tobacco: Every Day Cigarettes 0.3 32.8 Started: 1992 Smokeless Tobacco: Never Comments:Smoking about [...] encounter Miscellaneous Notes * Telephone Encounter - oPlly Huynh - 01/21/2023 12:45 PM EST Tc from [facility] requesting a HDF appointment. Pt was admitted at [facility] for acute chest pain on nd transferred to [facility] on 01/18. Pt will be discharged today 01/21. Was advised will forward to team nurse for f/u. Please contact pt at [phone] documented in this encounter Plan of Treatment Upcoming Encounters Date Type Department Care Team (Late st Contact Info) Description 03/02/2025 2:15 PM EST Office Visit [facility] [address] [place] [phone] Prasad Menezes MD [address] [place] [phone] 03/20/2025 2:30 PM EST Medication Management [facility] [address] [place] [phone] Renetta Su PharmD [address] [place] [phone] documented as of this encounter Goals Goal Patient Goal Type Associated Problems Recent Progress Patient-Stated? Author Blood Pressure < 140/90 Blood Pressure 136/74(2024 9:00 AM EDT) No Mary Kate Paul PharmD Note: Check BP at home daily and record Eat less salt Diet Mary Kate Carlisle, AnuD Note: Decrease sodium/ salt consumption documented as of this encounter Visit Diagnoses Not on filedocumented in this encounter Care Teams Consulting Project Director Relationship Specialty Start Date End Date Prasad Menezes MD [address] [place] [phone] PCP - General Internal Medicine 10/12/18 documented as of this encounter
--- OUTSIDE RECORDS SUMMARY | 2024-12-16 10:16 | XMS_ITS | Encounter Summary ---
Author Organization [employer] Address 75 [facility] 7t [place] [address] Care Team Providers Care Manager Play Name Role Phone Prasad Menezes MD Primary Care Provide r Encounter Details Date Type Department Care Team ([facility] st Contact Info) Description 01/22/[address] [facility] MEDICINE [address] [place], [place] [phone] Prasad Menezes MD [address] [place], [place] [phone] Social History Tobacco Use Types Packs/Day Years Used Date Smoking Tobacco: Former Cigarettes 0.3 32.8 S tarted: 1992 Passive Smoke Exposure: Past [...] Description 03/02/2025 2:15 PM EST Office Visit [facility] MEDICINE [address] [place] [phone] Prasad Menezse MD [address] [place] [phone] 03/20/2025 2:30 PM EST Medication Management [address] [address] Renetta Su PharmD [address] [place] [address] documented as of this encounter Goals Goal [...] documented as of this encounter Care Teams Manager Play Relationship Specialty Start Date End Date Prasad Menezes MD [address] [place] [address] PCP - General Internal Medicine 10/12/18 documented as of this encounter
--- OUTSIDE RECORDS SUMMARY | 2024-12-16 10:16 | XMS_ITS | Encounter Summary ---
Author Organization [email or web address] Address 75 [facility] 7t [place] [address] Care Team Providers Care Database Analyst Name Role Phone Prasad Menezes MD Primary Care Provide r Encounter Details Date Type Department Care Team (Late st Contact Info) Description 04/23/2023 Abstract [facility] ADULT DENTAL [address] [place] [address] Marcos, Gia [address] [place] [address] Social History Tobacco Use Types Packs/Day Years [...] Description 03/02/2025 2:15 PM EST Office Visit [facility] MEDICINE [address] [place] [phone] Prasad Menezes MD [address] [place] [address] 03/20/2025 2:30 PM EST Medication Management [facility] MEDICINE [address] [place] [address] Renetta Su PharmD [address] [place] [address] documented as of this encounter Goals Goal [...] documented as of this encounter Care Teams Database Analyst Relationship Specialty Start Date End Date Prasad Menezes MD [address] [place] [address] PCP - General Internal Medicine 10/12/18 documented as of this encounter
--- OUTSIDE RECORDS SUMMARY | 2024-12-16 10:16 | XMS_ITS | Encounter Summary ---
Author Organization [employer] Address 75 [facility] 7t [place] [address] Care Team Providers Care Underground Heavy Equipment Operator Name Role Phone Prasad Menezes MD Primary Care Provide r Reason for Visit * Reason Onset Date Comments callabck requested 01/22/2024 Encounter Details Date Type Department Care Team ([facility] st Contact Info) Description 01/22/2024 Telephone [facility] MEDICINE [address] [place], [place] [phone] Prasad Menezes MD [address] [place], [place] [phone] callabck requested Social History Tobacco Use Types [...] Description 03/02/2025 2:15 PM EST Office Visit [facility] MEDICINE [address] [place] [phone] Prasad Menezes MD [address] [place] [address] 03/20/2025 2:30 PM EST Medication Management [facility] MEDICINE [address] [place] [phone] Renetta Su, PharmD [address] [place] [address] documented as of this encounter Goals Goal Patient Goal Type Associated Problems Recent Progress Patient-Stated? Author Blood Pressure < 140/90 Blood Pressure 136/74(2024 9:00 AM EDT) No Mary Kate Paul, Yefri Note: Check BP at home daily and record Eat less salt Diet No Mary Kate Paul PharmD Note: Decrease sodium/ salt consumption documented as of this encounter Visit Diagnoses Not on filedocumented in this encounter Additional Health Concerns Assessment Noted Time PHQ-9 Depression Total Score: 0 02/04/20 23 9:35 AM EST documented as of this encounter Care Teams Underground Heavy Equipment Operator Relationship Specialty Start Date End Date Prasad Menezes MD [address] [place] [address] PCP - General Internal Medicine 10/12/18 documented as of this encounter
--- OUTSIDE RECORDS SUMMARY | 2024-12-16 10:16 | XMS_ITS | Clinical Summary ---
Author Organization [address] [place] [address] Address [address] [place] [address] Phone Care Team Providers Care Professional Soccer Player Name Role Phone Prasad Garcia MD Primary [...] edema, without long-term current use of insulin ([facility] V24, [facility] V28) 02/21/2022 HLD (hyperlipidemia) 11/25/2021 [...] Resolved Date ACS (acute coronary syndrome ) ([facility] V24, [facility] V28) 02/18/2023 03/29/2024 Stable angina ([facility] V24) 02/18/2023 03/29/2024 Immunizations Immunization Administration Dates Next Due Pfizer SARS-CoV-2 COVID-19, mRNA, LNP-S, preservative free 08/09/2020,07/19/2020 Surgical History Surgery Date Site/Laterality Comments CORONARY ARTERY BYPASS GRAFT Medical History Medical History Date Comments Diabetes ([facility] V24, [facility] V28) DX:Diabetes ([facility]) Social History Tobacco Use Types Packs/Day Years [...] Description 12/23/2024 10:30 AM EDT Ancillary Procedure [facility] [address] [place] [address] Health Maintenance Due Date Last Done Comments Colorectal Cancer Screening: Colonoscopy 1979 Diabetes: Annual Foot Exam 05/25/1989 Diabetes: Annual Retina Eye Exam 05/25/1989 Hepatitis B Vaccines (1 of 3 - 19+ 3-dose series) 05/25/1998 HPV Vaccines (1 - 3-dose SCD M series) 05/25/2006 HIV Screening 02/15/2022 Hepatitis C Screening 02/15/2022 Social Influencers of Health Screening 02/15/2022 Diabetes: Annual GFR (Glomerular Filtration Rate) 05/28/2022 05/28/2021 Hypertension/CHF/CAD Annual BMP Blood Test 05/28/2022 05/28/2021 Depression Screening 03/16/2024 Diabetes: Annual Urine Albumin-Creatinine Ratio (uACR) 03/30/2024 Diabetes: Blood Sugar Contro l Test (HGBA1C) 10/31/2024 05/03/2024, 03/17/2024, 01/04/2024 COVID-19 Vaccine (4 - 2025-2 6 season) 2024 03/12/2021, 08/09/2020, 07/19/2020 Influenza Vaccine (#1) 2024 , 02/23/2019, 02/23/2019 Cholesterol Screening (Lipid Panel) 04/06/2029 04/06/2024, 11/25/2021 DTaP,Tdap,and Td Vaccines (3 - Td or Tdap) 03/09/2032 03/09/2022, 10/10/2018 RSV Immunization Adult Patients (1 - 1-dose 75+ series) 05/25/2054 Pneumococcal Vaccine: Pediatrics (0 to 5 Years) [...] Procedure Name Priority Date/Time Associated Diagnosis Comments LIPID PANEL Routine 11/25/2021 ANNUAL BMP BLOOD TEST Routine 05/28/2021 from Last 3 Months or Most Recently Relevant to Health Maintenance Results * (ABNORMAL) Lipid panel (11/25/2021) LDL/HDL Ratio 7(A) 0 - 4 Triglycerides 535(A) 0 - 150 mg/dL Cholesterol 249(A) 0 - 200 mg/dL HDL 35(A) >=40 mg/dL Blood Venous blood specimen / Unknown Historical Provider LAB BLOOD ORDERABLES Beronica kapadia Result * Annual BMP Blood Test (05/28/2021) Annual BMP Blood Test Abstracted Historical Provider HEALTH MAINTENANCE Final Result from Last 3 Months or Most Recently Relevant to Health Maintenance Insurance MEDICAID - [place] Care Teams Professional Soccer Player Relationship Specialty Start Date End Date Praasd Garcia MD [address] [place] [address] PCP - General Internal Medicine 09/08/24
--- OUTSIDE RECORDS SUMMARY | 2024-12-16 10:16 | XMS_ITS | Encounter Summary ---
Author Organization [employer] Address [address] [facility] 7t [place] [address] Care Team Providers Care Metal Slitter Name Role Phone rPasad Menezes MD Primary Care Provide r Encounter Details Date Type Department Care Team ([facility] st Contact Info) Description 01/28/[address] [facility] MEDICINE [address] [place], [place] [phone] Prasad Menezes MD [address] [place], [place] [phone] Social History Tobacco Use Types Packs/Day Years [...] Description 03/02/2025 2:15 PM EST Office Visit [facility] MEDICINE [address] [place] [address] Prasad Menezes MD [address] [place] [address] 03/20/2025 2:30 PM EST Medication Management [address] [address] Renetta Su PharmD [address] [place] [address] documented as of this encounter Goals Goal [...] documented as of this encounter Care Teams Metal Slitter Relationship Specialty Start Date End Date Prasad Menezes MD [address] [place] [address] PCP - General Internal Medicine 10/12/18 documented as of this encounter
--- OUTSIDE RECORDS SUMMARY | 2024-12-16 10:16 | XMS_ITS | Clinical Summary ---
Author Organization [facility] Address [address] [place] [address] Care Team Providers Care Event Planning Manager Name Role Phone Unavailable Primary Care Provider [...] 3 - 19 + 3-dose series) 05/25/1998 Imm-HPV (1 - 3-dose SCDM series) 05/25/2006 Alcohol and Drug Screen 03/16/2024 Depression Annual Screen 03/16/2024 CT Colonography 05/25/2024 Colonoscopy 05/25/2024 Colorectal Cancer Screening 05/25/2024 FIT/gFOBT 05/25/2024 Fecal DNA 05/25/2024 Flexible Sigmoidoscopy 05/25/2024 Wie-[id number]-12 ( season) 2024 021, 07/19/2020 Imm-Influenza (#1) 2024 02/23/2019 Imm-DTaP/Tdap/Td (2 - Td or Tdap) 10/10/2028 [address]
--- OUTSIDE RECORDS SUMMARY | 2024-12-16 10:16 | XMS_ITS | Encounter Summary ---
Author Organization [employer] Address 75 [facility] 7 [place] [address] Care Team Providers Care Sweet Goods Machine Operator Name Role Phone Prasad Menezes MD Primary Care Provide r Encounter Details Date Type Department Care Team (Latest Contact Info) Description 12/06/2018 Abstract [facility] CONVERSIONS Dental, Provider, DDS Social History Tobacco [...] Upcoming Encounters Date Type Department Care Team ( st Contact Info) Description 03/02/2025 2:15 PM EST Office Visit [facility] MEDICINE [address] [place] [phone] Prasad Menezes MD [address] [place] [address] 03/20/2025 2:30 PM EST Medication Management [facility] MEDICINE [address] [place] [address] Renetta Su, AnuD [address] [place] [address] documented as of this encounter Visit Diagnoses Not on filedocumented in this encounter Care Teams Sweet Goods Machine Operator Relationship Specialty Start Date End Date Prasad Menezes MD [address] [place] [address] PCP - General Internal Medicine 10/12/18 documented as of this encounter
--- OUTSIDE RECORDS SUMMARY | 2024-12-16 10:16 | XMS_ITS | Encounter Summary ---
Author Organization [employer] Address 75 [facility] 7t [place] [address] Care Team Providers Care Rotary Drill Rig Operator Name Role Phone Prasad Menezes MD Primary Care Provide r Reason for Visit * Reason Onset Date Comments Hospital Follow-up 01/25/2024 Encounter Details Date Type Department Care Team ([facility] st Contact Info) Description 01/25/2024 Telephone [facility] MEDICINE [address] [place], [place] [phone] Prasad Menezes MD [address] [place], [place] [phone] Hospital Follow-up Social History Tobacco Use Types [...] from pt requesting a HDF appt. Hospital: [facility] Date of admission: 01/11/2024 Discharge date: 01/24/2024 Diagnosed: Cardiac Surgery *Send message to [place] Clinical Care Coordinators documented in this encounter Plan of Treatment Upcoming Encounters Date Type Department Care Team (Late st Contact Info) Description 03/02/2025 2:15 PM EST Office Visit [facility] MEDICINE [address] [place] [address] Prasad Menezes MD [address] [place] [address] 03/20/2025 2:30 PM EST Medication Management [facility] MEDICINE [address] [place] [address] Renetta Su, PharmD [address] [place] [address] documented as of this encounter Goals Goal [...] documented as of this encounter Care Teams Rotary Drill Rig Operator Relationship Specialty Start Date End Date Prasad Menezes MD [address] [place] [address] PCP - General Internal Medicine 10/12/18 documented as of this encounter
--- OUTSIDE RECORDS SUMMARY | 2024-12-16 10:16 | XMS_ITS | Encounter Summary ---
Author Organization [employer] Address 75 [facility] 7 [place] [address] Care Team Providers Care Kitchen Worker Name Role Phone Prasad Menezes MD Primary Care Provide r Reason for Visit * Reason Comments Med Refill Encounter Details Date Type Department Care Team (Late Contact Info) Description 12/17/2022 Refill [facility] [address] [place] [address] [phone] Prasad Menezes MD [address] [place] [address] Type 2 diabetes mellitus without complication, unspecified whether terminal carman insulin use ([facility]) Social History Tobacco Use Types Packs/Day Years [...] Department Care Team (Late Contact Info) Description 03/02/2025 2:15 PM EST Office Visit [facility] [address] [place], [place] [phone] Prasad Menezes MD [address] [place] [address] 03/20/2025 2:30 PM EST Medication Management [facility] [address] [place], [place] [phone] Renetta Su, Yefri [address] [place], [place] [phone] documented as of this encounter Goals Goal [...] 2 diabetes mellitus without complication, unspecified whether residential insulin use documented in this encounter Care Teams Kitchen Worker Relationship Specialty Start Date End Date Prasad Menezes MD [address] [place], [place] [phone] PCP - General Internal Medicine 10/12/18 documented as of this encounter
--- OUTSIDE RECORDS SUMMARY | 2024-12-16 10:16 | XMS_ITS | Encounter Summary ---
Author Organization [employer] Address 75 [facility] 7 [place] [address] Care Team Providers Care Cook Railroad Name Role Phone Prasad Menezes MD Primary Care Provide r Reason for Visit * Reason Onset Date Comments Medication Question 02/25/2024 Encounter Details Date Type Department Care Team ([facility] st Contact Info) Description 02/25/2024 Telephone [facility] MEDICINE [address] [place], [place] [phone] Prasad Menezes MD [address] [place], [place] [phone] Medication Question Social History Tobacco Use Types [...] PM EST Call returned to pt via [employer] Supervisor Channel Process Jm #[id number] re: message below. Pt states that he [...] to further discuss. Please contact pt at [phone]. (Citizen Of [place] Speaker) documented in this encounter Plan of Treatment Upcoming Encounters Date Type Department Care Team (Late st Contact Info) Description 03/02/2025 2:15 PM EST Office Visit [facility] MEDICINE [address] [place], [place] [phone] [place] [address] 03/20/2025 2:30 PM EST Medication Management [facility] [address] [place], [place] [phone] Renetta Su PharmD [address] [place], [place] [phone] documented as of this encounter Goals Goal [...] documented as of this encounter Care Teams Cook Railroad Relationship Specialty Start Date End Date Prasad Menezes MD [address] [place] [address] [phone] PCP - General Internal Medicine 10/12/18 documented as of this encounter
--- OUTSIDE RECORDS SUMMARY | 2024-12-16 10:16 | XMS_ITS | Clinical Summary ---
Author Organization [email or web address] Address [address] [place] [address] Care Team Providers Care Supervisor Advertising Dispatch Clerks Name Role Phone Prasad Menezes MD Primary Care Provide r Allergies Active Allergy Reactions Criticality Noted Date Comments Other 03/17/2024 Anchovies Medications Blood Pressure Monitoring (Omron 3 Series BP Monitor) deviceIndications :Essential hypertension USE TO CHECK BLOOD PRESSURE EVERY DAY DIRECTED 1 each 02/04/20 23 Active amLODIPine (Norvasc) 10 MG tabletIndications :Essential hypertension Take 1 tablet (10 mg) by mouth at bedtime. 90 tablet 3 12/14/19 24 Active Blood Glucose Monitoring Suppl (FreeStyle [place] Lite) w/Device kitIndications:Ty pe 2 diabetes mellitus without complication, without long-term current use of insulin ([facility]) TEST BLOOD SUGAR TWICE DAILY 1 kit 01/04/20 24 Active glucose blood (FREESTYLE LITE) test stripIndications: Type 2 diabetes mellitus without complication, without long-term current use of insulin ([facility]) TEST BLOOD SUGAR TWICE A DAY and as needed 100 each 11 01/04/20 24 Active TRUEplus Lancets 33G miscIndications:T ype 2 diabetes mellitus without complication, without long-term current use of insulin ([facility]) TEST BLOOD SUGAR TWICE DAILY & NEEDED 100 each 11 01/04/20 24 Active Alcohol Swabs (Alcohol Pads) 70 % padsIndications:T ype 2 diabetes mellitus without complication, without long-term current use of insulin ([facility]) Use as directed up to 3 times a day for checking blood sugar and trulicity injection 100 each 11 01/04/20 24 Active EpiPen 2-Ernesto 0.3 MG/0.3ML injection syringe Inject intramuscularly for allergic reactions. Call 911 Seek Medical attention 02/03/20 24 Active metFORMIN XR (Glucophage-XR) 500 MG 24 hr tabletIndications :Type 2 diabetes mellitus without complication, unspecified whether [facility] insulin use TAKE 2 TABLETS BY MOUTH TWICE DAILY IN THE MORNING AND EVENING WITH FOOD 360 tablet 1 08/03/19 25 Active clopidogrel (Plavix) 75 MG tablet TAKE 1 TABLET BY MOUTH EVERY DAY 90 tablet 1 08/03/19 25 Active isosorbide mononitrate ER (Imdur) 60 MG 24 hr tablet TAKE 1 TABLET BY MOUTH EVERY MORNING 90 tablet 1 08/24/19 25 Active amoxicillin (Amoxil) 500 MG capsuleIndication s:Periodontal disease,Retained tooth root,Dental caries on smooth surface limited to enamel,Bone loss,Localized gingival recession Take 4 tabs (2 grams) 1 hour prior to dental procedure 4 capsule 3 09/21/19 25 Active rosuvastatin (Crestor) 40 MG tabletIndications :Mixed hyperlipidemia TAKE 1 TABLET BY MOUTH AT BEDTIME 90 tablet 09/27/19 25 Active Aspirin Low Dose 81 MG EC tabletIndications :Essential hypertension TAKE 1 TABLET BY MOUTH EVERY MORNING 90 tablet 09/27/19 25 Active glipiZIDE XL (Glucotrol XL) 10 MG 24 hr tabletIndications :Type 2 diabetes mellitus with unspecified complications (HCC) TAKE 1 TABLET BY MOUTH EVERY MORNING 90 tablet 1 10/26/19 25 Active carvedilol (Coreg) 25 MG tabletIndications :Ischemic heart disease TAKE 1 TABLET BY MOUTH TWICE DAILY IN THE MORNING AND AT BEDTIME 180 tablet 1 10/26/19 25 Active Trulicity 1.5 MG/0.5ML solution auto-injectorIndi cations:Type 2 diabetes mellitus without complication, without long-term current use of insulin (HCC) INJECT ONE PEN (=1.5MG) SUBCUTANEOUSLY ONCE A WEEK DIRECTED 2 mL 2 11/02/19 25 Active Active Problems Problem Noted Date Diagnosed Date Retained tooth root 09/20/2024 Dental caries on smooth surface limited to ename l 09/20/2024 Localized gingival recession 09/20/2024 Bone loss 09/20/2024 S/P CABG (coronary artery bypass graft) 01/02/20 25 Assessment & Plan (03/17/2024 10:36 AM EST): 43-year-old male with PMH of 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 ACS (acute coronary syndrome) 06/17/2023 Class 2 [...] left foot, limited to breakdown of skin (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 2022, smoker presented with exertional angina to [facility] after chest pain episode was [...] Pt is scheduled to follow up with [facility] Cardiology Assessment & Plan (03/05/2023 1:25 PM [...] Pt is scheduled to follow up with [facility] Assessment & Plan (02/03/2023 2:32 PM [...] Pt is scheduled to follow up with [facility] Other male erectile dysfunction 02/03/2023 Assessment & Plan (02/03/2023 10:13 AM EST): Pt would like to be referred to Urology, On Imdur Tobacco dependence 08/22/2022 Assessment & Plan (02/03/2023 2:38 PM EST): Pt tells me he has not smoke since discharge We discussed nicotine patches, gum, lozenges, chantix Declined all of them Essential hypertension 02/21/2022 Assessment & Plan (03/17/2024 11:09 AM EST): [...] three times per week and refer to [facility] clinic, he's not seeing Dr Howard. Continue [...] Howard Mixed hyperlipidemia 02/21/2022 Assessment & Plan (05/03/2024 2:44 PM EST): Pt here for a f/u Most recent lipid profile from: Lab Results Component Value Date TRIG 155 (H) 04/06/2024 TRIG 174 (H) 02/24/2023 CHOL 151 04/06/2024 CHOL 142 02/24/2023 LDLCHOLCAL 76 04/06/2024 LDLCHOLCAL 69 02/24/2023 HDL 44 04/06/2024 HDL 39 (L) 02/24/2023 Currently on a regimen of Rosuvastatin 40 mg po qhs He admits he forgets to take it sometimes, Pharmacy states he has been picking up boxes regularly plan: continue current regimen advised to try to adhere to a low cholesterol diet, counseled and educated about diet and exercise, Patient encouraged to come up with a personal goal for weight loss. Advice to start taking medication daily to prevent deadly problems such as MIs or CVAs pt verbalized understanding f/u 3 months Assessment & Plan (03/17/2024 11:11 AM EST): [...] 2 yr ago (06/11/20) Triglycerides <150 mg/dL 174 High 247 High CM 378 High CM 430 High CM Comment: Desirable Triglyceride: less than 150 mg/dLBorderline High Triglyceride 150-199 mg/dLHigh Triglyceride: 200-499 mg/dLVery High Triglyceride: greater than or equal to 5OO mg/dL Cholesterol <200 mg/dL 142 Comment: Desirable Cholesterol: less than 200 mg/dLBorderline High Cholesterol: 200-239 mg/dLHigh Cholesterol: greater than 239 mg/dL LDL Cholesterol Calculated <100 mg/dL 69 Comment: Desirable LDL: less than 100 mg/dLNear Optimal/Above Optimal LDL: 110-129 mg/dLBorderline High LDL: 130-159 mg/dLHigh LDL: 160-189 mg/dLVery High LDL: greater than or equal to 190 mg/dL HDL Cholesterol >40 mg/dL 39 Low 39 Low R 38 Low R 37 Low R Currently on a regimen of Rosuvastatin [...] 3 months Type 2 diabetes mellitus wit h both eyes affected by mild nonproliferative retinopathy without macular edema, without long-term current use of insulin 02/21/2022 Assessment & Plan (05/03/2024 2:36 PM EST): Here for a f/u Patient admits he does not follow a diabetic diet. He says he is taking his medications regularly he has a med box Hgb A1c 05/03/2024 was 8.5 from 7.4 from 8.7 From 12.1 He is [...] thyroid papillary carcinoma Plan:continue Metformin and Glipizide, Increase Trulicity to 1.5 mg once a week. Counseled and educated about diabetic diet and medication compliance No further adjustment to his regimen for now f/u 3 months Pt advised to: adhere to diabetic diet check your blood sugars regularly check your feet on a daily basis Assessment & Plan (03/17/2024 11:06 AM EST): [...] No change in other medications Refer to [facility] pharmacy program Counseled re more frequent low [...] check your feet on a daily basis Resolved Problems Problem Noted Date Diagnosed Date Resolved Date Acute cough 03/17/2024 05/03/2024 Assessment & Plan (03/17/2024 11:06 AM EST): Mild dry, no fever, no sob, no chest pain Plan: Chest x-ray Encounters Date Type Department Care Team Description 11/24/2024 Telephone [facility] [address] [place] [phone] Prasad Menezes MD No Show 11/23/2024 Telephone [facility] [address] [place], [place] [phone] Ketty Workman MA 11/01/2024 Refill [facility] [address] [place], [place] [phone] Ladonna Yoo MD Type 2 diabetes mellitus without complication, without long-term current use of insulin (CMS/HCC) 10/25/2024 Refill [facility] [address] [place], [place] [phone] Prasad Menezes MD Type 2 diabetes mellitus with unspecified complications (CMS/HCC); Ischemic heart disease 09/24/2024 Refill [facility] [address] [place], [place] [phone] Prasad Menezes MD Mixed hyperlipidemia; Essential hypertension 09/20/2024 9:00 AM EDT Office Visit [facility] [address] [place] [phone] Gia Rodríguez Periodontal disease (Primary Dx); Retained tooth root; Dental caries on smooth surface limited to enamel; Bone loss; Localized gingival recession from Last 3 Months Immunizations Immunization Administration Dates Next Due Influenza injectable quadriv alent preservative free 02/23/2019 Influenza, seasonal, injecta ble, preservative free 01/04/2024 Pfizer Covid-19 Vaccine 12+ 03/12/2021, 1,07/19/2020 Pneumococcal Conjugate PCV 20 01/04/2024 Tdap 03/09/2022,10/10/2018 [...] Orientation Straight 07/19/2024 8: 41 AM EDT Last Filed Vital Signs Vital Sign Reading Time Taken Comments Blood Pressure 136/74 09/20/2024 9:00 AM EDT Pulse 106 05/03/2024 2:13 PM EST Temperature 36.2 C (97.1 F) 05/03/2024 2:13 PM EST Respiratory Rate 20 05/03/2024 2:13 PM EST Oxygen Saturation 96% 05/03/2024 2:13 PM EST Inhaled Oxygen Concentration - - Weight 101 kg (223 lb 9.6 oz) 05/03/2024 2:13 PM EST Height 167.6 cm (5' 6 ) 05/03/2024 2:13 PM EST Body Mass Index 36.09 05/03/2024 2:13 PM EST Plan of Treatment Upcoming Encounters Date Type Department Care Team (Late st Contact Info) Description 03/02/2025 2:15 PM EST Office Visit [facility] [address] [place] [phone] Prasad Menezes MD [address] [place] [address] 03/20/2025 2:30 PM EST Medication Management [facility] [address] [place] [phone] Renetta Su, PharmD [address] [place] [address] Health Maintenance Due Date Last Done Comments CT Colonography 1979 Colonoscopy 1979 Colorectal Cancer Screening 1979 FIT DNA/Cologuard 1979 FIT 1979 FOBT 1979 HIV Screening 1979 Sigmoidoscopy 1979 Disability Screening 1979 Eye Exam 05/25/1989 Family Planning (PISQ) 05/25/1994 HPV Vaccines (1 - Male 3-dose series) 05/25/1994 Hepatitis C Screening 05/25/1997 Hepatitis B Vaccines (1 of 3 - 19+ 3-dose series) 05/25/1998 Dental Prophylaxis 10/09/2023 04/09/2023 Diabetes: Foot Exam 06/04/2024 06/05/2023, 06/05/2023, 06/05/2023, Additional history exists Diabetes: Hemoglobin A1C 07/31/2024 025, 03/17/2024, 01/04/2024, Additional history exists SDOH Screening 08/13/2024 08/14/2023 COVID-19 Vaccine ( season) 2024 03/12/2021, 08/09/2020, 07/19/2020 Influenza Vaccine (#1) 2024 , 01/04/2024, 02/23/2019, Additional history exists Alcohol/Substance Use Screening 03/17/2025 03/17/2024 Depression Screening 03/17/2025 03/17/2024, 03/17/19 Dental Oral Exam 03/24/2025 09/20/2024, , 12/06/2018 Diabetes: Urine Protein Screening 04/06/2025 04/06/2024, 12/12/2021, 06/11/2020 Lipid Panel 04/06/2025 04/06/2024, 02/13, 12/12/2021, Additional history exists Tobacco Screening 09/20/2025 09/20/2024 Dental X-Ray: Bitewings 09/21/2025 09/21/19, 04/09/2023, 12/06/2018 Dental X-Ray: Full Mouth 10/10/2025 10/09/2022, 11/15 Zoster Vaccines (1 of 2) 05/25/2029 DTaP/Tdap/Td Vaccines (3 - Td or Tdap) 03/09/2032 03/09/2022, 10/10/2018 RSV Patients and Patients Aged 60 years or older (1 - 1-dose 75+ series) 05/25/2054 Pneumococcal Vaccine: Pediatrics (0 to 5 Years) and At-Risk Patients (6 to 49) Years Completed 01/04/2024 HIB Vaccines Aged Out No [...] Paul PharmD Note: Decrease sodium/ salt consumption Procedures Procedure Name Priority Date/Time Associated Diagnosis Comments CASE PRESENTATION, DETAILED AND EXTENSIVE TREATMENT PLANNING Routine 09/20/2024 9:00 AM EDT Periodontal disease Retained tooth root Dental caries on smooth surface limited to enamel Bone loss Localized gingival recession PERIODIC ORAL EVALUATION - ESTABLISHED PATIENT Routine 09/20/2024 9:00 AM EDT INTRAORAL - PERIAPICAL EACH ADDITIONAL RADIOGRAPHIC IMAGE Routine 09/20/2024 9:00 AM EDT INTRAORAL - PERIAPICAL FIRST RADIOGRAPHIC IMAGE Routine 09/20/2024 9:00 AM EDT BITEWINGS - 4 RADIOGRAPHIC IMAGES Routine 09/20/2024 9:00 AM EDT 17 EXTRACTION Routine 09/20/2024 12:00 AM EDT POCT GLYCATED HEMOGLOBIN, TOTAL Routine 05/03/2024 2:30 PM EST Type 2 diabetes mellitus without complication, without long-term current use of insulin ([facility]) ALBUMIN, RANDOM URINE W/CREATININE Routine 04/06/2024 10:03 AM EST Type 2 diabetes mellitus without complication, without long-term current use of insulin ([facility]) LIPID PANEL, STANDARD Routine 04/06/2024 10:03 AM EST Mixed hyperlipidemia PROPHYLAXIS - ADULT Routine 04/09/2023 8 :00 AM EST Periodontal disease Dental calculus Encounter for dental examination Dental caries Gum inflammation PANORAMIC RADIOGRAPHIC IMAGE Routine 10/09/2022 2:30 PM EDT Periodontal disease Dental caries from Last 3 Months or Most Recently Relevant to Health Maintenance Results * (ABNORMAL) POCT HGB A1C (05/03/2024 2:30 PM EST) Hemoglobin A1C 8.5(A) 4.0 - 6.0 % QC Media Lot # [id number] Lot# Expiration Date Blood 05/03/2024 2:30 PM EST Prasad Thompson MD POINT OF CARE TEST EN TER/EDIT ORDERABLES Final Result * (ABNORMAL) Albumin, Random Urine W/Creatinine (04/06/2024 10:03 AM EST) Creatinine, Urine 151.83 mg/dL [facility] Microalbumin Urine 69.0 mg/L [facility] Microalbum Creatinine Ratio Ur 45.4(H) <30 ug/mg cr [facility] Comment:Albumin/Creatinine R atio Reference Ranges: Normal: < 30 ug/mg creatinine Microalbuminuria: 30 - 300 ug/mg creatinineClinical Albuminuria: > 300 ug/mg creatinine Urine (Urine, Random) 04/06/2024 10:03 AM EST 04/06/2024 11:51 AM EST Prasad Thompson MD LAB URINE ORDERABLES Final Result [facility] [address] [place] [phone] [phone] * (ABNORMAL) Lipid Panel, Standard (04/06/2024 10:03 AM EST) Triglycerides 155(H) <150 mg/dL [facility] Comment:Desirable Triglyceri de: less than 150 mg/dLBorderline High Triglyceride 150-199 mg/dLHigh Triglyceride: 200-499 mg/dLVery High Triglyceride: greater than or equal to 5OO mg/dL Cholesterol 151 <200 mg/dL [facility] Comment:Desirable Cholestero l: less than 200 mg/dLBorderline High Cholesterol: 200-239 mg/dLHigh Cholesterol: greater than 239 mg/dL LDL Cholesterol Calculated 76 <100 mg/dL [facility] Comment:Desirable LDL: less than 100 mg/dLNear Optimal/Above Optimal LDL: 110- 129 mg/dLBorderline High LDL: 130-159 mg/dLHigh LDL: 160-189 mg/dLVery High LDL: greater than or equal to 190 mg/dL HDL Cholesterol 44 >40 mg/dL [facility] Comment:Desirable HDL: great er than 40 mg/dL Note: This HDL assay may give artificially low results in patients with liver disease. Blood Venous blood specimen / Unknown 04/06/2024 10:03 AM EST 04/06/2024 12:05 PM EST us Prasad Thompson MD LAB BLOOD ORDERABLES Final Result [facility] [address] [place] [address] [phone] from Last 3 Months or Most Recently Relevant to Health Maintenance Insurance [facility] STAND ADULT Care Teams Supervisor Advertising Dispatch Clerks Relationship Specialty Start Date End Date Prasad Menezes MD [address] [place] [phone] PCP - General Internal Medicine 10/12/18
[2024-12-16 11:41] LABS: Prostate Specific Antigen 0.31 ng/mL (<0.05-4.0)
[2024-12-17 22:23] LABS: Follicle Stimulating Hormone 5.2 mIU/mL (1.4-12.8)
[2024-12-22 05:40] LABS: Estradiol Ultra Sensitive 18 pg/mL (< OR = 29)
[2024-12-22 18:57] LABS: Testosterone, Free 56.4 pg/mL (35.0-155.0)
== END 2024-12-16 09:43 | disposition home or self-care (01) ==
LOC: HO.LAB 09:42
PROVIDERS: PCP Internal Medicine; Visit Provider Nurse Practitioner Family
DX: E11.69 Type 2 diabetes mellitus with other specified complication (principal); N52.1 Erectile dysfunction due to diseases classified elsewhere; R68.82 Decreased libido
CPT/HCPCS: 36415; 82670; 83001; 83002; 83036; 84146; 84153; 84402; 84403

== ENCOUNTER 2025-01-10 11:20 | Outpatient (AMB) | payer MEDICAID, SELFPAY ==
--- NOTE | 2025-01-10 11:21 | A.OFFVIS_ITS ---
Intake Visit Reasons: 4m/Labs Intake Note: Patient presents today for: 4m/labs Urology Medication:tadalafil Blood Thinner:Aspirin labs done 12/16/24: a1c 10.6, psa 0.31, eus 18, fsh 5.2, lh 3.7, prolactin 4.9, tt 300, fr t 56.4 Asphalt Still Operator Required: Yes Asphalt Still Operator Services: Asphalt Still Operator Present Asphalt Still Operator Name: Jon [id number] Accompanied by: Self / Same As Patient Allergies No Known Allergies Allergy (Verified 01/10/25 20:28) Medication List - Last Reconciled 01/10/25 by GENNA Oates- amlodipine 5 mg PO BEDTIME aspirin 81 mg PO QAM blood sugar diagnostic (FreeStyle Lite Strips) As directed carvedilol 25 mg PO dulaglutide (Trulicity) mg subcut QWEEK glipizide ER 10 mg PO isosorbide mononitrate ER 30 mg PO DAILY lancets (TRUEplus Lancets) As directed metformin ER 1,000 mg PO nitroglycerin mg sublingual rosuvastatin 40 mg PO BEDTIME tadalafil (Cialis) 5 mg PO DAILY 90 days ticagrelor (Brilinta) 90 mg PO BID HPI Comments Details: Salazar is a very pleasant 44-year-old Icelandic-speaking male patient of Dr. Garcia. He has a past medical history of hyperlipidemia, coronary artery disease, hypertension, and diabetes. He presents to the office today for follow- up of his erectile dysfunction. In discussion with the patient today he reports he was unable to obtain low-dose Cialis as prescribed during last office visit in his requesting recent admission of prescription. He does continue to report episodes of ED. He reports finding it very difficult to maintain erections that are adequate for penetration. Recent labs were reviewed with the patient today as noted and trended below: PSA: 01/07 0.3 Estradiol: 01/07 18 FSH: 01/07 5.2 LH: 01/07 3.7 Prolactin: 01/07 4.9 Testosterone: 04/09 331, 01/07 300 Free testosterone: 04/09 88.7, 01/07 56.4 A1c: 01/07 10.6 We did discussed borderline low testosterone as well as further treatment options and risks and benefits of these treatment options. We discussed testosterone replacement verses testosterone temple. We also discussed at length the importance of management and diabetes for improvement in urological health as well as overall health and well-being. When asked he denies any signs or symptoms of sleep apnea. When asked he denies any bothersome urinary issues. He denies urinary urgency, urinary frequency, incontinence, nocturia, hematuria, dysuria, foul smelling urine, changes to urinary stream, flank pain, fever, and or chills. He is happy with his current voiding parameters. All questions were answered. He otherwise offers no other issues or concerns at this time. [facility] Medical History Hx of chest pain Hx of hyperlipidemia Hx of coronary artery disease Hx of essential hypertension Hx of diabetes mellitus Surgical History History of coronary artery stent placement Family History Father No problems noted. Mother No problems noted. Social History Alcohol intake: current Alcohol intake frequency: holidays/special occasions only Patient Tobacco Use Status: Former Tobacco user Review of Systems Const Reports no additional complaints Eyes Reports no additional complaints ENT Reports no additional complaints Card Reports as per HPI Resp Reports no additional complaints GI Reports no additional complaints Reports as per HPI Musc Reports no additional complaints Neuro Reports no additional complaints Psych Reports no additional complaints Endo Reports as per HPI Yosef/Lymph Reports no additional complaints Aller/Immun Reports no additional complaints Physical Exam Const General: cooperative, healthy appearing, comfortable, no acute distress, well developed, alert and awake Nutritional Appearance: overweight Orientation/consciousness: patient oriented x3 Limitations: language barrier HEENT Head: Yes normal to inspection, Yes normocephalic and Yes atraumatic Ears: hearing grossly normal bilaterally Eyes General: appearance normal, both eyes and all related structures Neck Neck: Yes normal visual inspection and Yes trachea midline Chest Chest palpation & inspection: normal inspection of the chest Resp Effort & Inspection: normal respiratory effort and able to speak in complete sentences Cardio Rate: regular rate GI Inspection: Yes normal to inspection General: Yes no CVA tenderness Back/Spine/Pelvis Back: no CVA tenderness Skin General skin exam: no rashes or lesions noted Neuro General: patient oriented x3 Extrem General: Yes normal to inspection Psych Appearance: grossly normal and well kempt Mental Status: mental status grossly normal Speech and movement: Normal speech and movement present and Clear speech present Affect: normal affect Attitude: cooperative Thought process: Normal thought process present Thought content: Normal thought content present Insight: Fair insight present (Psych) Judgement: Fair judgement present (Psych) Assessment & Plan Assessment & Plan (1) Low libido: Code(s): R68.82 - Decreased libido Category: Medical (2) Erectile dysfunction associated with type 2 diabetes mellitus: Code(s): E11.69 - Type 2 diabetes mellitus with other specified complication; N52.1 - Erectile dysfunction due to diseases classified elsewhere Category: Medical Plan Recent hormonal labs reviewed with the patient today; as noted above. We did discussed testosterone replacement verses testosterone temple . Start low-dose Cialis as discussed and prescribed. We also discussed potential causes of ED as well as borderline low testosterone; we discussed further treatment options and risks and benefits of these treatment options. All questions were answered Discussed at length importance of managing diabetes for improvement in ED as well as overall health and well-being. Discussed lifestyle modifications to assist with erectile dysfunction. We also discussed the importance of management and his diabetes for improvement in urological health as well as overall health and well-being. Will obtain testosterone and A1c in 4-6 months Follow up in 4-6 months with labs to be completed prior; or sooner with any issues, concerns, or issues. Orders: Orders Testosterone, Free/Total 4 Months E11.69 - Type 2 diabetes mellitus with other specified complication, N52.1 - Erectile dysfunction due to diseases classified elsewhere, R68.82 - Decreased libido Hemoglobin A1c 4 Months E11.9 - Type 2 diabetes mellitus without complications Medications: Refilled tadalafil (Cialis) [id number] [facility] [id number] Member [id number] 5 mg PO DAILY 90 tabs 1RF 90 days E11.69 - Type 2 diabetes mellitus with other specified complication, N52.1 - Erectile dysfunction due to diseases classified elsewhere Patient Instructions: The patient had an opportunity to ask questions regarding the treatment plan. All questions were answered. Physical exam, labs, and imaging were discussed and reviewed in detail. As well as risks, benefits, and discussion of treatment choices. No major barriers to understanding were identified. The patient expressed understanding and agreement with the above treatment plan. The patient was made aware they should contact our office by phone for worsening of their current condition, the appearance of new symptoms, or with any questions or concerns. Compliance is encouraged with any medications and follow up testing that is ordered. It is a privilege to be allowed the opportunity to participate in? your urological care.? Again, if you have any questions or concerns If you have any questions or concerns please do not hesitate to contact me. The office is [phone]. This note is constructed using voice recognition software. While every effort has been made to ensure accuracy triple valve mechanic errors may have been included. Yours sincerely, CARROL Oates Coding Level of Care Code Est Pt Level 3 (01246) Complex EM visit Add On G2211 Diagnoses Low libido R68.82 Erectile dysfunction associated with type 2 diabetes mellitus E11.69; N52.1
== END 2025-01-10 11:51 | disposition home or self-care (01) ==
LOC: HO.HUSH 11:20
PROVIDERS: PCP Internal Medicine; Visit Provider Nurse Practitioner Family
DX: R68.82 Decreased libido (principal); E11.69 Type 2 diabetes mellitus with other specified complication; N52.1 Erectile dysfunction due to diseases classified elsewhere
CPT/HCPCS: 99213

== ENCOUNTER → 2025-01-10 11:20 | Outpatient (BNVA) | payer MEDICAID, SELFPAY | PROVIDERS: PCP Internal Medicine; Visit Provider Nurse Practitioner Family | DX: E11.69 Type 2 diabetes mellitus with other specified complication (principal); N52.1 Erectile dysfunction due to diseases classified elsewhere; R68.82 Decreased libido | CPT/HCPCS: 99212 ==